=== PATIENT | female | born 1945 | race African-American/Black ===

== ENCOUNTER → 2017-07-27 | Outpatient (CLI) | payer MEDICARE | END | disposition home or self-care (01) | LOC: MAMMO 09:01 | DX: Z12.31 Encounter for screening mammogram for malignant neoplasm of breast (principal) | CPT/HCPCS: 77067 ==

== ENCOUNTER → 2017-08-13 | Outpatient (CLI) | payer MEDICARE | END | disposition home or self-care (01) | LOC: RAD 10:12 | DX: M47.892 Other spondylosis, cervical region (principal) | CPT/HCPCS: 72040 ==

== ENCOUNTER → 2017-11-28 | Outpatient (CLI) | payer MEDICARE | END | disposition home or self-care (01) | LOC: KCIC CT 09:49 | DX: R51 Headache (principal); I10 Essential (primary) hypertension | CPT/HCPCS: 70450 ==

== ENCOUNTER → 2018-03-31 | Outpatient (CLI) | payer MEDICARE ==
[2014-06-13 08:13] VITALS: BP 170/99
[~2018-03-31] MED LIST: AMLO10TA6 PO; ASPI-482 PO; ASPI-630 PO; FERR325T14 PO; FOLI1TAB16 PO; LISI-130 PO; LISI10TA2 PO; METH1POW21 MC; METH2.5T PO; OXYC-323 PO; VITA1TAB19 PO; WARF3TAB50 PO
[2018-03-31 09:33] LABS: BASO # 0.1 x10^3/uL (0.0-0.2); BASO % 1 % (0-3); EOS # 0.2 x10^3/uL (0.0-0.7); EOS % 4 % (0-3); HEMATOCRIT 36.6 % (36.0-47.0); LYMPH # 0.8 x10^3/uL (1.0-4.8); LYMPH % 15 % (24-48); MEAN CORPUSCULAR HEMOGLOBIN 27 pg (25-35); MEAN CORPUSCULAR HGB CONC 33 g/dL (31-37); MEAN CORPUSCULAR VOLUME 83 fL (79-100); MONO # 0.3 x10^3/uL (0.0-1.1); MONO % 6 % (0-9); NEUT # 3.8 x10^3uL (1.8-7.7); NEUT % 75 % (31-73); PLATELET COUNT 281 x10^3/uL (140-400); RED BLOOD COUNT 4.42 x10^6/uL (3.50-5.40); RED CELL DISTRIBUTION WIDTH 17.4 % (11.5-14.5); WHITE BLOOD COUNT 5.1 x10^3/uL (4.0-11.0)
[2018-03-31 09:42] LABS: ALBUMIN 3.6 g/dL (3.4-5.0); CALCIUM 9.6 mg/dL (8.5-10.1); CREATININE 0.8 mg/dL (0.6-1.0); GFR 85.8; POTASSIUM 3.3 mmol/L (3.5-5.1)
[2018-03-31 09:43] LABS: PROTHROMBIN TIME PATIENT 13.3 SEC (11.7-14.0)
[2018-03-31 11:36] LABS: BILIRUBIN,URINE NEGATIVE (NEG); CLARITY,URINE CLEAR; COLOR,URINE YELLOW; NITRITE,URINE NEGATIVE (NEG); PROTEIN,URINE 100 mg/dL (NEG-TRACE); UROBILINOGEN,URINE 0.2 mg/dL (0.2 mg/dL)
[2018-03-31 11:46] LABS: SQUAMOUS EPITHELIAL CELL,UR FEW /LPF
[2018-03-31 11:47] LABS: BACTERIA,URINE FEW /HPF (0-FEW)
--- NOTE | 2018-03-31 15:52 | RAD ---
EXAM: Chest, 2 views. HISTORY: Preoperative evaluation. Hypertension. COMPARISON: None. FINDINGS: 2 views of the chest are obtained. There is no infiltrate, pleural effusion or pneumothorax. The heart is normal in size. IMPRESSION: No acute pulmonary finding. Electronically signed by: Sri Leigh MD (03/31/2018 3:49 PM) [facility]
== END | disposition home or self-care (01) ==
LOC: SURGPAT 13:00
PROVIDERS: ATTEND Orthopaedic Surgery
DX: Z01.818 Encounter for other preprocedural examination (principal); I10 Essential (primary) hypertension
CPT/HCPCS: 36415; 71046; 80048; 81001; 82040; 85025; 85610; 85651; 85730; 87086; 87641

== ENCOUNTER 2018-04-15 05:47 | Inpatient (IN) | payer MEDICARE ==
[~2018-04-15] VITALS: Ht 165.1 cm; Wt 80.7 kg
[2018-04-15] VITALS (8 sets, daily range): BP systolic 121–140; BP diastolic 71–79
[~2018-04-15 05:47] MED LIST changes: -FERR325T14 PO; -OXYC-323 PO; -WARF3TAB50 PO
[2018-04-15] MEDS ORDERED: TRANEXAMIC ACID 1,000 MG/10 ML VIAL. ONE (05:50)
[2018-04-15] MEDS ORDERED: MORPHINE SULFATE 5 MG, KETOROLAC 30MG VIAL 30 MG, ROPIVacaine 0.5% PF 60 ML, EPINEPHrin... INT ART ONE ×5 (06:00)
[2018-04-15] MEDS ORDERED: HYDROcodone/APAP 7.5/325MG 1 TAB TABLET PO PRN ×2 (06:00→08:00)
[2018-04-15] MEDS ORDERED: CELECOXIB 100 MG CAPSULE. PO PRN (06:00)
[2018-04-15] MEDS ORDERED: TRANEXAMIC ACID 1,000 MG in IV NS 50ML -- 1ST BAG INJ ONE (06:00)
[2018-04-15] MEDS: MELOXICAM 7.5 MG TABLET PO SCH (06:40)
[2018-04-15] MEDS ORDERED: HYDROmorphone 2 MG/ML VIAL IV PRN (07:00)
[2018-04-15] MEDS ORDERED: fentaNYL PF VIAL 100 MCG/2 ML VIAL IV PRN ×3 (07:00→08:00)
[2018-04-15] MEDS ORDERED: PROCHLORPERAZINE 10 MG/2 ML VIAL. IV PRN ×2 (07:00→08:00)
[2018-04-15] MEDS ORDERED: ONDANSETRON PF 4 MG/2 ML VIAL. IV PRN (07:00)
[2018-04-15] MEDS ORDERED: LIDOCAINE 1% PF 2 ML VIAL. ID PRN (07:00)
[2018-04-15] MEDS ORDERED: IV RINGERS,LACTATED 1000ML 1,000 ML IV SCH (07:00)
[2018-04-15 07:23] LABS: PROTHROMBIN TIME PATIENT 13.2 SEC (11.7-14.0)
[2018-04-15] MEDS ORDERED: ROCURONIUM 50 MG/5 ML VIAL. ONE (07:26)
[2018-04-15] MEDS ORDERED: LIDOCAINE 2% PF Vial for OR 5 ML VIAL. ONE (07:26)
[2018-04-15] MEDS ORDERED: ONDANSETRON PF 4 MG/2 ML VIAL. ONE (07:26)
[2018-04-15] MEDS ORDERED: DEXAMETHASONE SOD PHOS 20 MG/5 ML VIAL. ONE (07:26)
[2018-04-15] MEDS ORDERED: PROPOFOL 20 ML IV ONE (07:26)
[2018-04-15] MEDS ORDERED: fentaNYL PF VIAL 100 MCG/2 ML VIAL ONE ×3 (07:26→10:43)
[2018-04-15] MEDS ORDERED: HYDROcodone/APAP 10/325 1 TAB TABLET PO PRN (08:00)
[2018-04-15] MEDS ORDERED: CALCIUM CARBONATE 500 MG TAB.CHEW PO PRN (08:00)
[2018-04-15] MEDS ORDERED: TRANEXAMIC ACID 1,000 MG in IV NS 50ML -- 2ND BAG INJ ONE (08:00)
[2018-04-15] MEDS ORDERED: traMADol 50 MG TABLET PO PRN ×2 (08:00)
[2018-04-15] MEDS ORDERED: ZOLPIDEM 5 MG TABLET. PO PRN (08:00)
[2018-04-15] MEDS ORDERED: 0.9 % SODIUM CHLORIDE 10 ML DISP.SYRIN. IV PRN (08:00)
[2018-04-15] MEDS ORDERED: MORPHINE SULFATE 2 MG/ML VIAL. IV PRN (08:00)
[2018-04-15] MEDS ORDERED: MORPHINE SULFATE 4 MG/ML VIAL. IV PRN (08:00)
[2018-04-15] MEDS ORDERED: ACETAMINOPHEN 325 MG TABLET. PO PRN (08:00)
[2018-04-15] MEDS ORDERED: DEXTROSE 50% 25 GM / 50ML DISP.SYRIN. IV PRN (08:00)
[2018-04-15] MEDS ORDERED: PHENYLEPHRINE in 0.9% NACL PF 1 MG/10 ML SYRINGE. IV ONE (08:19)
--- NOTE | 2018-04-15 08:39 | HP ---
ADMIT DATE: 04/15/2018 PRINCIPAL DIAGNOSIS: Degenerative joint disease, right knee, with some bilateral knee pain. HISTORY OF PRESENT ILLNESS: The patient is an otherwise active 9-year-old female, increasing limited by bilateral knee pain, right worse than left for the past several years. She has gotten cortisone injections that originally gave her some reasonable relief and now has less effect. It affects both her work where she is on her feet all day at [employer] and at home where her activities of daily living are affected due to her pain. PAST MEDICAL HISTORY: Significant for hypertension, arthritis, and diverticulitis. PAST SURGICAL HISTORY: Hysterectomy. SOCIAL HISTORY: Denies smoking, alcohol or drug use. MEDICATIONS: List is reviewed. REVIEW OF SYSTEMS: Denies any fever, chills, chest pain, shortness of breath, focal weakness, numbness, tingling, radiating pain in the extremities. PHYSICAL EXAMINATION: VITAL SIGNS: Per admission sheet. HEENT: Atraumatic, normocephalic. HEART: Regular rate and rhythm. LUNGS: Clear to auscultation bilaterally. ABDOMEN: Benign. EXTREMITIES: Examination of the right knee reveals some slight varus, minimal flexion contracture, good ligamentous stability, significant patellofemoral crepitus and joint line tenderness, less severe findings on the left. Normal alignment and stability of bilateral hips and ankles. IMAGING DATA: X-rays show severe tricompartmental degenerative changes in the right knee. IMPRESSION: Degenerative joint disease, right knee. TREATMENT PLAN: We had previously talked about definitive treatment of total knee arthroplasty with her. She said all her questions were answered in joint class. She has no further questions today. A few questions of her family at her request were addressed and she gave informed consent, noting risks of infection, nerve or blood vessel damage, medical or other anesthetic complications among others. She will proceed to the joint center for ongoing admission and treatment following the total knee arthroplasty. LIBERTAD YOUNG MD DR: KATY/lucy JOB#: [id number] / [id number]
[2018-04-15] MEDS ORDERED: ePHEDrine PF IN SALINE 50 MG/5 ML DISP.SYRIN IV ONE (08:53)
[2018-04-15] MEDS ORDERED: hydrALAZINE 20 MG/ML VIAL. ONE (09:09)
[2018-04-15] MEDS ORDERED: SEVOFLURANE > 120 MINUTES. IH ONE (09:13)
[2018-04-15] MEDS ORDERED: NEOSTIGMINE METHYLSULFATE 5 MG/5 ML SYRINGE. ONE (09:52)
[2018-04-15] MEDS ORDERED: GLYCOPYRROLATE 1 MG/5 ML VIAL. ONE (09:52)
--- NOTE | 2018-04-15 10:26 | PDOC4 ---
Operative Note Operative Note Date of surgery: 04/15/2018 Preoperative diagnosis: Degenerative joint disease right knee Postoperative diagnosis: Same Operative procedure: Right total knee arthroplasty Surgeon: Harjinder Assist: Natalio Anesthesia: Gen. Estimated blood loss: 10 mL Tourniquet time: Approximately 1 hour 20 minutes Complications: None Surgical drains: Hemovac and intra-articular catheter Operative indications: Please see my preoperative history and physical and clinic notes. We had covered risks benefits postoperative course of total knee arthroplasty including the possibility of infection continued pain instability premature wear or loosening medical or other anesthetic complications among others all her questions were answered she wishes to proceed with surgical evaluation and treatment in joint center admission to follow Operative text: Patient was identified procedure verified patient placed in the supine position on the operating table. After adequate amounts of general anesthesia were administered the right lower extremity was prepped and draped in standard sterile fashion with a thigh tourniquet. After timeout was performed patient procedure identified and verified right lower extremity was exsanguinated by Esmarch bandage tourniquet inflated to 350 no was mercury midline incision was made with a medial parapatellar approach fat pad was excised and patella everted. Femur was drilled for an intramedullary cutting guide in standard position she had minimal flexion contracture she was sized for a size 4 femur AP lateral chamfer cuts were then made ACL was excised PCL was preserved. Menisci were then excised tibial cut was made using the extra medullary cutting jig and a moderate medial release had to be performed to balance the otherwise tight medial compartment where she had the majority of her wear. Tibia was then drilled and broached trial femur was then placed patella was medialized with a size 29 resurfacing patella lateral bone was removed to minimize any chance of impingement. Trial components were removed synovium was thoroughly irrigated and bleeding points controlled by electrocautery with particular attention to the posterior capsule area the following [employer] components were cemented in place with polymethylmethacrylate cement: A size 3 journey 2 tibial component a size 3 cruciate retaining cobalt-chromium femoral component and a size 29 mm resurfacing round patella. An 11 mm spacer was placed in the held out in extension and cement allowed to dry after removing excess. Given that she had excellent tracking and ligament balance an 11 mm polyethylene component was snapped into place additional thorough irrigation carried out normal saline solution Hemovac drain and pain catheter were placed pain catheter mixture was injected throughout the joint capsule closure with interrupted 2-0 Ethibond suture in the retinaculum reinforced by a #1 PDS strata fix suture subcutaneous closure with buried Vicryl suture subcuticular 3-0 Monocryl was followed by a bita drain. Patient was returned recovery room in stable condition having tolerated procedure well. Toes were noted be warm pink following deflation of tourniquet. Felipe Lance nurse practitioner was present for the procedure and assisted in skin closure LIBERTAD YOUNG MD Apr 15, 2018 10:26
[2018-04-15] MEDS: fentaNYL PF VIAL 100 MCG/2 ML VIAL IV PRN ×2 (11:02→11:09)
--- NOTE | 2018-04-15 11:05 | RAD ---
KNEE RIGHT 2V Clinical Indication: POST OP TOTAL KNEE REPLACEMENT Comparison: None. Findings: AP and crosstable lateral views. There has been total knee arthroplasty. The alignment appears anatomic. There has been resurfacing of the patella. No periprosthesis fracture is identified. There is joint fluid and air. Surgical drain is in place. There is scattered subcutaneous air. IMPRESSION: Post total knee arthroplasty, no acute complication radiographically. Electronically signed by: Jose Gresham MD (04/15/2018 11:02 AM) [id number]
[2018-04-15] MEDS ORDERED: MORPHINE SULFATE 2 MG/ML VIAL. ONE (11:16)
[2018-04-15] MEDS: MORPHINE SULFATE 2 MG/ML VIAL. IV PRN ×2 (11:19→11:33)
[2018-04-15] MEDS ORDERED: PROCHLORPERAZINE 10 MG/2 ML VIAL. ONE (11:23)
[2018-04-15] MEDS: oxyCODONE/APAP 5/325 1 TAB TABLET PO PRN ×2 (15:42→20:21)
[2018-04-15] MEDS ORDERED: WARFARIN 3 MG TABLET. PO ONE (16:00)
[2018-04-15] MEDS ORDERED: WARFARIN 7.5 MG TABLET. PO ONE (16:00)
[2018-04-15] MEDS: FERROUS SULFATE 325 MG TABLET. PO SCH (17:00)
[2018-04-15] MEDS: KETOROLAC 30MG VIAL 30 MG, BUPIVACAINE MPF 0.25% 20 ML, EPINEPHrine 0.5 MG in TOTAL VOL... INT ART SCH (17:47)
[2018-04-15] MEDS: IV DEXTROSE 5 %-0.45 % NACL 1,000 ML IV SCH ×2 (18:34→22:30)
[2018-04-15] MEDS: CELECOXIB 100 MG CAPSULE. PO SCH (20:21)
[2018-04-16 03:08] VITALS: BP 131/70
[2018-04-16 05:38] LABS: HEMATOCRIT 26.3 % (36.0-47.0); HEMOGLOBIN 8.6 g/dL (12.0-15.5)
[2018-04-16 05:41] VITALS: BP 145/82
[2018-04-16 05:52] LABS: PROTHROMBIN TIME PATIENT 15.8 SEC (11.7-14.0)
[2018-04-16] MEDS: KETOROLAC 30MG VIAL 30 MG, BUPIVACAINE MPF 0.25% 20 ML, EPINEPHrine 0.5 MG in TOTAL VOL... INT ART SCH (05:52)
[2018-04-16] MEDS: oxyCODONE/APAP 5/325 1 TAB TABLET PO PRN ×2 (05:59→12:45)
[2018-04-16] MEDS ORDERED: MAGNESIUM HYDROXIDE 2,400 MG/30 ML ORAL.SUSP. PO PRN (06:00)
--- NOTE | 2018-04-16 07:16 | PDOC ---
ORTHO PROGRESS NOTES Subjective Patient states feeling ok with minimal pain. Post-op Day: 1 Procedure R TKA Vitals Vital Signs Date Time Temp Pulse Resp B/P (MAP) Pulse Ox O2 Delivery O2 Flow Rate FiO2 04/16/18 06:59 Room Air 04/16/18 05:59 18 97 04/16/18 05:41 98.7 88 145/82 (103) 98.7 04/15/18 11:33 2.0 Labs Laboratory Tests Test 04/15/18 06:00 04/16/18 04:40 Prothrombin Time 13.2 SEC (11.7-14.0) 15.8 SEC (11.7-14.0) Prothromb Time International Ratio 1.1 (0.8-1.1) 1.3 (0.8-1.1) Activated Partial Thromboplast Time 30 SEC (24-38) Hemoglobin 8.6 g/dL (12.0-15.5) Hematocrit 26.3 % (36.0-47.0) Mean Corpuscular Hemoglobin Concent 33 g/dL (31-37) Laboratory Tests Test 04/16/18 04:40 Hemoglobin 8.6 g/dL (12.0-15.5) Hematocrit 26.3 % (36.0-47.0) Mean Corpuscular Hemoglobin Concent 33 g/dL (31-37) Prothrombin Time 15.8 SEC (11.7-14.0) Prothromb Time International Ratio 1.3 (0.8-1.1) Assessment and Plan N/V intact distally moving toes and feet dressing dry and intact PT per protocol TRIP BERNARD APRN Apr 16, 2018 07:15
[2018-04-16] MEDS: IV DEXTROSE 5 %-0.45 % NACL 1,000 ML IV SCH ×3 (08:30→19:09)
[2018-04-16] MEDS: CELECOXIB 100 MG CAPSULE. PO SCH ×2 (09:00→20:40)
[2018-04-16] MEDS: FOLIC ACID 1 MG TABLET. PO SCH (09:13)
[2018-04-16] MEDS: VITAMIN B COMPLEX TABLET. PO SCH (09:13)
[2018-04-16] MEDS: MELOXICAM 7.5 MG TABLET PO SCH (09:14)
[2018-04-16] MEDS: FERROUS SULFATE 325 MG TABLET. PO SCH ×2 (09:14→17:00)
[2018-04-16] MEDS: SENNOSIDES/DOCUSATE 8.6/50MG TABLET. PO SCH (09:14)
[2018-04-16] MEDS: oxyCODONE/APAP 7.5/325 1 TAB TABLET PO PRN ×3 (09:14→19:11)
[2018-04-16] MEDS: MULTIVITAMIN with MINERAL TABLET. PO SCH (09:14)
[2018-04-16 09:15] VITALS: BP 138/79
[2018-04-16] MEDS: amLODIPine BESYLATE 10 MG TABLET PO SCH (09:15)
[2018-04-16 11:53] VITALS: BP 139/85
[2018-04-16] MEDS: LISINOPRIL 20 MG TABLET PO SCH (12:47)
--- NOTE | 2018-04-16 15:04 | PDOC ---
PROGRESS NOTES Subjective Subjective Problems overnight: Doing well, pain controlled minimal complaints Objective Vital Signs Vital Signs Date Time Temp Pulse Resp B/P (MAP) Pulse Ox O2 Delivery O2 Flow Rate FiO2 04/16/18 12:47 91 139/85 04/16/18 12:45 20 04/16/18 11:53 98.3 98 Room Air 98.3 04/15/18 11:33 2.0 Physical Exam Dressing Hemovac drain pain catheter all intact excellent early motion distal neurovascular status intact Labs Laboratory Tests Test 04/15/18 06:00 04/16/18 04:40 Prothrombin Time 13.2 SEC (11.7-14.0) 15.8 SEC (11.7-14.0) Prothromb Time International Ratio 1.1 (0.8-1.1) 1.3 (0.8-1.1) Activated Partial Thromboplast Time 30 SEC (24-38) Hemoglobin 8.6 g/dL (12.0-15.5) Hematocrit 26.3 % (36.0-47.0) Mean Corpuscular Hemoglobin Concent 33 g/dL (31-37) Laboratory Tests Test 04/16/18 04:40 Hemoglobin 8.6 g/dL (12.0-15.5) Hematocrit 26.3 % (36.0-47.0) Mean Corpuscular Hemoglobin Concent 33 g/dL (31-37) Prothrombin Time 15.8 SEC (11.7-14.0) Prothromb Time International Ratio 1.3 (0.8-1.1) Imaging Postop x-rays show right total knee arthroplasty with excellent alignment Assessment Assessment POD# [1], S/P [right total knee arthroplasty] Plan Plan of Care Weightbearing as tolerated standard total knee protocol Coumadin anticoagulation LIBERTAD YOUNG MD Apr 16, 2018 15:04
[2018-04-16] MEDS ORDERED: BISACODYL 10 MG SUPP.RECT. PR PRN (16:00)
[2018-04-16 18:18] VITALS: BP 159/83
[2018-04-17] MEDS: oxyCODONE/APAP 7.5/325 1 TAB TABLET PO PRN ×6 (00:14→21:16)
[2018-04-17 06:25] VITALS: BP 141/78
[2018-04-17 07:08] LABS: HEMATOCRIT 27.1 % (36.0-47.0)
[2018-04-17] MEDS: oxyCODONE/APAP 5/325 1 TAB TABLET PO PRN (07:18)
[2018-04-17 07:32] LABS: PROTHROMBIN TIME PATIENT 18.2 SEC (11.7-14.0)
[2018-04-17] MEDS ORDERED: POLYETHYLENE GLYCOL 3350 17 GM PACKET. PO PRN (08:30)
[2018-04-17] MEDS ORDERED: BISACODYL 5 MG TABLET.DR. PO PRN (08:30)
[2018-04-17] MEDS: FOLIC ACID 1 MG TABLET. PO SCH (08:34)
[2018-04-17] MEDS: MELOXICAM 7.5 MG TABLET PO SCH (08:34)
[2018-04-17] MEDS: MULTIVITAMIN with MINERAL TABLET. PO SCH (08:34)
[2018-04-17] MEDS: FERROUS SULFATE 325 MG TABLET. PO SCH ×2 (08:35→16:30)
[2018-04-17] MEDS: amLODIPine BESYLATE 10 MG TABLET PO SCH (08:35)
[2018-04-17] MEDS: VITAMIN B COMPLEX TABLET. PO SCH (08:35)
[2018-04-17] MEDS: SENNOSIDES/DOCUSATE 8.6/50MG TABLET. PO SCH (08:35)
[2018-04-17] MEDS: LISINOPRIL 20 MG TABLET PO SCH (08:36)
[2018-04-17] MEDS: CELECOXIB 100 MG CAPSULE. PO SCH ×2 (08:40→21:16)
[2018-04-17] MEDS: IV DEXTROSE 5 %-0.45 % NACL 1,000 ML IV SCH ×2 (14:30→21:18)
[2018-04-17] MEDS ORDERED: WARFARIN 3 MG TABLET. PO ONE (16:30)
[2018-04-17 18:09] VITALS: BP 158/87
[2018-04-18 05:53] VITALS: BP 136/77
[2018-04-18 06:57] LABS: HEMATOCRIT 26.6 % (36.0-47.0)
[2018-04-18 07:15] LABS: PROTHROMBIN TIME PATIENT 18.3 SEC (11.7-14.0)
[2018-04-18] MEDS: CELECOXIB 100 MG CAPSULE. PO SCH (07:42)
[2018-04-18] MEDS: FERROUS SULFATE 325 MG TABLET. PO SCH (07:58)
[2018-04-18] MEDS: amLODIPine BESYLATE 10 MG TABLET PO SCH (07:58)
[2018-04-18] MEDS: SENNOSIDES/DOCUSATE 8.6/50MG TABLET. PO SCH (07:58)
[2018-04-18] MEDS: FOLIC ACID 1 MG TABLET. PO SCH (07:59)
[2018-04-18] MEDS: LISINOPRIL 20 MG TABLET PO SCH (07:59)
[2018-04-18] MEDS: VITAMIN B COMPLEX TABLET. PO SCH (07:59)
[2018-04-18] MEDS: MELOXICAM 7.5 MG TABLET PO SCH (07:59)
[2018-04-18] MEDS: MULTIVITAMIN with MINERAL TABLET. PO SCH (07:59)
[2018-04-18] MEDS: oxyCODONE/APAP 7.5/325 1 TAB TABLET PO PRN ×3 (08:00→14:58)
--- NOTE | 2018-04-18 09:09 | PATHOLOGY ---
[facility] Accession Number: [id number] . 01 Material submitted: . RIGHT KNEE BONE AND TISSUE . 01 Clinician provided ICD-10: M17.11 . 01 Clinical history: . Right knee osteoarthritis . 02 Diagnosis: "Right knee bone and tissue", removal: - Degenerative osteoarthritis. . (SKM:vjm;04/17/2018) [facility]/04/17/2018 . 02 Electronically signed: . Dionisio Godwin MD, Pathologist NPI- [id number] . 01 Gross description: . The specimen is received in formalin, labeled "Kenneth, Shirlene, right knee bone and tissue", are multiple segments of calvert-brown bone and beck-white soft tissue consisting of recognizable portion of tibia plateau, patella and meniscus measuring 9.0 x 8.7 x 2.0 cm in aggregate. Peripheral osteophytes and eburnation is identified. Brush Painter tissue is submitted in A1 after decalcification. ([facility]; 04/15/2018) [facility] . 02 Pathologist provided ICD-10: M17.11 . 02 CPT . 095260, [id number] Specimen Comment: A courtesy copy of this report has been sent to Specimen Comment: [phone], . Specimen Comment: Report sent to / DR CHRISTENSEN Specimen Comment: A duplicate report has been generated due to demographic updates. Performed at: 01 [facility] [address] [address], [place] [id number] MD Minh Jordan MD Phone: [phone] Performed at: 02 [facility] [address] [place], [place] [id number] MD Vadim Anglin MD Phone: [phone]
[2018-04-18] MEDS: IV DEXTROSE 5 %-0.45 % NACL 1,000 ML IV SCH (10:09)
[2018-04-18] MEDS ORDERED: WARFARIN 3 MG TABLET. PO ONE (11:00)
[2018-04-18 12:51] VITALS: BP 150/82
--- NOTE | 2018-04-18 13:21 | DISCH ---
DISCHARGE INSTRUCTIONS Condition on Discharge Condition on Discharge: Stable Activity After Discharge Activity Instructions for Disc: Walk in house Other activity instructions: use walker until released by therapist Bathing Instructions: Shower-keep dressing dry, No Tub Bath until see Lifting Instructions after Dis: No heavy lifting, No pulling or pushing, Do not lift >10 pounds Exercise Instruction after Dis: Exercise per therapy Driving Instructions after Dis: Do not drive Weight Bearing Status after Di: No restrictions, Full weight bearing, As tolerated Diet after Discharge Diet after Discharge: Regular Diet Texture: Regular Liquid Texture: Thin Liquid Swallowing Supervision: None needed Wound Incision Care Wound/Incision Care: Ice to area for comfort, Keep wound/cast CDI, Do not change dressing, May get incision wet Other wound/incision instructi: remove battery pack on apr.22 cut tubing 4" from bubble and tape d Wound Care Equipment: Dressings Checks after Discharge DC Comment: increase fruits, vegetables and fiber; attempt BM every 2-3 days Community/Resources/Services Services at Discharge: Home Health Care Services, PT EVALUATE & TREAT, OT Evaluate & Treat, RN Services Contacting the after DC Call your doctor for: Concerns you may have Follow-Up Follow Up With: call [phone] for a 2 week post op appt with Dr. Grande Treatment/Equipment after DC Comment: PT/INR to be drawn SaturdayApr.21; ;; Warfarin Follow-Up Warfarin Follow UP: [facility] is managing coumadin ??? call LIBERTAD GRANDE MD Apr 18, 2018 13:21
[2018-04-18] MEDS ORDERED: WARF3TAB50 PO (13:35)
[2018-04-18] MEDS ORDERED: OXYC-323 PO (13:38)
[2018-04-18] MEDS ORDERED: FERR325T14 PO (13:44)
--- NOTE | 2018-04-19 09:59 | DS ---
DATE OF DISCHARGE: 04/18/2018 ORTHOPEDIC DISCHARGE SUMMARY PRINCIPAL DIAGNOSIS: Degenerative joint disease, right knee. PROCEDURE: Right total knee arthroplasty. DISPOSITION: Home with her daughter and home health. Follow up with Dr. Grande in 2 weeks. Activity, weightbearing as tolerated, standard total knee protocol. Maintain DAR drain. Call if any redness, drainage, uncontrolled pain or other problems. DISCHARGE MEDICATIONS: Percocet 5/325 one p.o. q. 4 hours p.r.n. pain, Coumadin as directed by anticoagulation clinic and resume preoperative medications noted as in discharge summary. BRIEF DESCRIPTION OF HOSPITAL COURSE: The patient underwent an uncomplicated total knee arthroplasty. Postoperatively, she was noted to be medically stable. Pain was well controlled. She progressed well with physical therapy and was discharged home with her daughter, with plan of home health, in stable condition. LIBERTAD GRANDE MD DR: KATY/lucy JOB#: [id number] / [id number]
[2018-04-21] MEDS ORDERED: METHOTREXATE SODIUM 2.5 MG TABLET PO SCH (09:00)
== END 2018-04-18 16:30 | disposition home health service (06) | DRG 470 ==
LOC: OPSVCIP 05:47 → 4 SOUTHEST 12:14
PROVIDERS: ADMIT Orthopaedic Surgery; ATTEND Orthopaedic Surgery
PROC: 0SRC0J9 Replacement of Right Knee Joint with Synthetic Substitute, Cemented, Open Approach (ICD-10-PCS; principal; 2018-04-15 07:30)
DX: M17.11 Unilateral primary osteoarthritis, right knee (principal); I10 Essential (primary) hypertension; Z90.710 Acquired absence of both cervix and uterus
CPT/HCPCS: 36415; 73560; 85014; 85018; 85610; 85730; 86850; 86870; 86900; 86901; 86902; 86922; 88305; 88311; A7015; C1713; J0171; J0360; J0690; J0780; J1100; J1885; J2001; J2270; J2370; J2405; J2704; J2710; J2795; J3010; J3490; J7030; J7120; 97116; 97150; 97530; 97535; C1769

== ENCOUNTER → 2018-06-25 | Outpatient (CLI) | payer MEDICARE ==
[~2018-06-25] MED LIST changes: +FERR325T14 PO; +OXYC1TAB15 PO; +WARF3TAB50 PO
--- NOTE | 2018-06-25 14:04 | RAD ---
EXAM: Lumbar spine, 3 views. HISTORY: Pain. COMPARISON: None. FINDINGS: 3 views of the lumbar spine are obtained. There is grade 1 anterolisthesis of L4 and L5, measuring 10 mm. There is grade 1 anterolisthesis of L5 on S1, measuring 5 mm. There is grade 1 anterolisthesis of L3 on L4, measuring 4 mm. There is degenerative endplate remodeling with disc space narrowing predominantly at L4-L5. There is facet arthropathy predominating at L4-5 and L5-S1. There is mild osteitis pubis. IMPRESSION: 1. Multilevel degenerative change within the lumbar spine, primarily at the lower lumbar levels. 2. Grade 1 anterolisthesis of L4 and L5. Electronically signed by: Sri Leigh MD (06/25/2018 2:00 PM) [facility]
== END | disposition home or self-care (01) ==
LOC: RAD 13:27
PROVIDERS: ATTEND Internal Medicine
DX: M47.26 Other spondylosis with radiculopathy, lumbar region (principal); M85.38 Osteitis condensans, other site; M43.16 Spondylolisthesis, lumbar region; M12.88 Other specific arthropathies, not elsewhere classified, other specified site
CPT/HCPCS: 72100

== ENCOUNTER → 2018-09-17 | Outpatient (CLI) | payer MEDICARE ==
[~2018-09-17] MED LIST changes: -AMLO10TA6 PO; +AMLO10TA8 PO
--- NOTE | 2018-09-17 14:50 | RAD ---
DATE: 09/17/2018 EXAM: MAMMO BRUCE SCREENING BILATERAL HISTORY: Routine screening COMPARISON: 07/27/2017 This study was interpreted with the benefit of Computerized Aided Detection (CAD). Breast Density: HETERO The breast parenchyma is heterogenously dense, which could reduce sensitivity of mammography. Breast parenchyma level C. FINDINGS: 2-D and 3-D tomosynthesis imaging was performed in CC and MLO projections. No new or enlarging breast densities are seen. Benign type calcifications are present. No suspicious microcalcifications have developed. IMPRESSION: Stable mammograms without evidence of malignancy. BI-RADS CATEGORY: 2 BENIGN FINDING(S) RECOMMENDED FOLLOW-UP: 12M 12 MONTH FOLLOW-UP PQRS compliance statement: Patient information was entered into a reminder system with a target due date for the next mammogram. Mammography is a sensitive method for finding small breast cancers, but it does not detect them all and is not a substitute for careful clinical examination. A negative mammogram does not negate a clinically suspicious finding and should not result in delay in biopsying a clinically suspicious abnormality. "Our facility is accredited by the [employer] Mammography Program."
== END | disposition home or self-care (01) ==
LOC: MAMMO 13:09
PROVIDERS: ATTEND Internal Medicine
DX: Z12.31 Encounter for screening mammogram for malignant neoplasm of breast (principal); R92.8 Other abnormal and inconclusive findings on diagnostic imaging of breast
CPT/HCPCS: 77063; 77067

== ENCOUNTER → 2019-06-02 | Outpatient (CLI) | payer MEDICARE ==
--- NOTE | 2019-06-02 10:29 | RAD ---
EXAM: CAROTID DOPPLER SONOGRAM. HISTORY: Left carotid bruit, hypertension. TECHNIQUE: Philip scale and color Doppler sonographic evaluation of the neck with spectral waveform analysis was performed and static images are submitted for review. FINDINGS: RIGHT: The peak systolic velocity within the common carotid artery is 52 cm/sec. The peak systolic velocity within the internal carotid artery is 62 cm/sec and the end diastolic velocity within the internal carotid artery is 25 cm/sec. The ICA/CCA ratio is 1.2. Grayscale images demonstrate no grayscale stenosis. LEFT: The peak systolic velocity within the common carotid artery is 65 cm/sec. The peak systolic velocity within the internal carotid artery is 59 cm/sec and the end diastolic velocity within the internal carotid artery is 20 cm/sec. The ICA/CCA ratio is 0.9. Grayscale images demonstrate no grayscale stenosis. There is antegrade flow within both vertebral arteries. IMPRESSION: 1. No evidence of hemodynamically significant stenosis. PQRS Compliance Statement - Stenosis calculations for CT, MR and conventional angiography are based upon measurement of the distal ICA diameter in accordance with the NASCET methodology. Stenosis calculations for carotid ultrasound studies are derived from validated velocity criteria which are known to correlate with the NASCET methodology. Electronically signed by: Joslyn Schneider MD (06/02/2019 10:26 AM) [facility]
--- NOTE | 2019-06-02 11:28 | CARD ---
MR#: [id number] Date of Study: 06/02/2019 Ordering Physician: HUGH GIBBONS, Referring Physician: HUGH GIBBONS, Tech: APPROVED REPORT EXAM: Two-dimensional and M-mode echocardiogram with Doppler and color Doppler. Other Information Quality : AverageHR: 65bpm INDICATION Syncope RISK FACTORS Hypertension 2D DIMENSIONS RVDd3.0 (2.9-3.5cm)Left Atrium(2D)4.3 (1.6-4.0cm) IVSd1.1 (0.7-1.1cm)Aortic Root(2D)3.2 (2.0-3.7cm) LVDd5.2 (3.9-5.9cm)LVOT Diameter2.3 (1.8-2.4cm) PWd1.3 (0.7-1.1cm)LVDs3.7 (2.5-4.0cm) FS (%) 30.2 %SV75.5 ml LVEF(%)57.1 (>50%) Aortic Valve AoV Peak Chai.160.9cm/sAoV VTI30.6cm AO Peak GR.10.4mmHgLVOT Peak Chai.85.8cm/s LVOT VTI 20.86cmAO Mean GR.5mmHg BALDEV (VMAX)1.78mv6NXB (VTI)2.84cm2 AI P 1/2 Yjbj963ol Mitral Valve MV E Qtehsugj66.1cm/sMV DECEL ZHEQ695cn MV A Geoppcdx541.6cm/sMV E Mean Gr.2mmHg MV CVX89yiO/A Ratio0.6 MVA (PHT)2.47cm2 TDI E/Lateral E'12.6E/Medial E'11.2 Pulmonary Valve PV Peak Mcaomvdg290.2cm/sPV Peak Grad.5mmHg Tricuspid Valve TR P. Qprazvkb067yp/sRAP CQNVABLA0duGt TR Peak Gr.40gmMoRZKJ23fgCy Pulmonary Vein S1 Gchcuhcg72.8cm/sD2 Tbahvupj27.2cm/s PVa aoebqsru303uifi LEFT VENTRICLE The left ventricle is normal size. There is mild to moderate concentric left ventricular hypertrophy. The left ventricular systolic function is normal and the ejection fraction is within normal range. T he Ejection Fraction is 55-60%. There is normal LV segmental wall motion. Transmitral Doppler flow pa ttern is Grade I-abnormal relaxation pattern. RIGHT VENTRICLE The right ventricle is normal size. There is normal right ventricular wall thickness. The right ventr icular systolic function is normal. ATRIA The left atrium size is normal. The right atrium is mildly dilated. The interatrial septum is intact with no evidence for an atrial septal defect or patent foramen ovale as noted on 2-D or Doppler imagi ng. AORTIC VALVE The aortic valve is normal in structure and function. Doppler and Color Flow revealed moderate aortic regurgitation. There is no significant aortic valvular stenosis. MITRAL VALVE The mitral valve is normal in structure and function. There is no evidence of mitral valve prolapse. There is no mitral valve stenosis. Doppler and Color-flow revealed trace mitral regurgitation. TRICUSPID VALVE The tricuspid valve is normal in structure and function. Doppler and Color Flow revealed trace tricus pid regurgitation with an estimated PAP of 30 mmHg. There is no tricuspid valve stenosis. PULMONIC VALVE The pulmonic valve is not well visualized. Doppler and Color Flow revealed trace pulmonic valvular re gurgitation. There is no pulmonic valvular stenosis. GREAT VESSELS The aortic root is normal in size. The IVC is normal in size and collapses >50% with inspiration. PERICARDIAL EFFUSION There is no evidence of significant pericardial effusion. Critical Notification Critical Value: No <Conclusion> The left ventricular systolic function is normal and the ejection fraction is within normal range. Th e Ejection Fraction is 55-60%. There is normal LV segmental wall motion. Doppler and Color Flow revealed moderate aortic regurgitation. Signed by : Bienvenido Parrish, Electronically Approved : 06/02/2019 11:28:28
== END | disposition home or self-care (01) ==
LOC: US 09:24
PROVIDERS: ATTEND Internal Medicine Cardiovascular Disease
DX: I35.1 Nonrheumatic aortic (valve) insufficiency (principal); I11.9 Hypertensive heart disease without heart failure; R09.89 Other specified symptoms and signs involving the circulatory and respiratory systems; M19.90 Unspecified osteoarthritis, unspecified site; K21.9 Gastro-esophageal reflux disease without esophagitis; Z87.891 Personal history of nicotine dependence; Z90.710 Acquired absence of both cervix and uterus
CPT/HCPCS: 93306; 93880

== ENCOUNTER → 2019-07-15 | Outpatient (CLI) | payer MEDICARE ==
--- NOTE | 2019-07-15 13:13 | RAD ---
EXAM: Lumbar spine, 3 views. HISTORY: Pain. COMPARISON: 06/25/2018 FINDINGS: 3 views of the lumbar spine are obtained. There is grade 1 anterolisthesis of L4 on L5, and to a lesser extent, L3 on L4 and L5 on S1. There is disc space narrowing at L4-L5. There is facet arthropathy at the mid lower lumbar levels. IMPRESSION: 1. Grade 1 anterolisthesis of L4 and L5, and to a lesser extent, L3 on L4 and L5 on S1. This is not appreciably changed. 2. Disc space narrowing at L4-L5 and facet arthropathy at the mid lower lumbar levels. This is also stable in appearance. Electronically signed by: Sri Leigh MD (07/15/2019 1:10 PM) [facility] [place]
== END | disposition home or self-care (01) ==
LOC: RAD 12:33
PROVIDERS: ATTEND Internal Medicine
DX: M43.17 Spondylolisthesis, lumbosacral region (principal); M48.061 Spinal stenosis, lumbar region without neurogenic claudication; M12.88 Other specific arthropathies, not elsewhere classified, other specified site
CPT/HCPCS: 72100

== ENCOUNTER → 2019-10-20 | Outpatient (CLI) | payer MEDICARE ==
--- NOTE | 2019-10-21 17:00 | RAD ---
History: Routine screening. Technique: Bilateral digital mammographic routine views were obtained with 2-D and 3-D technique including CAD - computer aided detection. Comparison: 09/17/2018, 07/27/2017. Findings: Breast Tissue Density B :The breast tissue is composed of mixed fatty and fibroglandular tissue. There are no suspicious masses, microcalcifications or areas of architectural distortion. Impression: Negative mammogram. BI-RADS Category 1: Negative. Normal interval followup. A mammogram does not have 100% sensitivity and therefore a negative imaging study should not delay further work up of a suspicious abnormality. The patient will receive a letter with the results in the mail. Patient information is entered into the reminder system with a target due date for the next screening mammogram. The patient will receive a reminder. "Our facility is accredited by the [employer] Mammography Program." BI-RADS 1 -- negative findings (within normal)
== END | disposition home or self-care (01) ==
LOC: MAMMO 09:39
PROVIDERS: ATTEND Internal Medicine
DX: Z12.31 Encounter for screening mammogram for malignant neoplasm of breast (principal)
CPT/HCPCS: 77063; 77067

== ENCOUNTER → 2019-11-12 | Outpatient (CLI) | payer MEDICARE ==
--- NOTE | 2019-11-12 11:01 | RAD ---
MRI Lumbar Spine without contrast History: DJD, sciatica Technique: Multiplanar, multi sequential noncontrast MR imaging was performed of the lumbar spine. Comparison: None Findings: There is some motion degradation. Lumbar vertebral body stature is overall maintained. There is no significant marrow edema. There is grade 1 anterior spondylolisthesis at L4-5 on the order of about 5 mm. There is moderate to severe L4-5 degenerative disc disease, minimally at L3-4, mild disc desiccation at other lumbar levels. Conus terminates near L1-2. There is a small likely hemangioma of the posterior L3 vertebral body, also probable tiny focus of L4. There is minimal lumbar levoscoliosis. L1-L2, L2-3: These levels were not included on the axial images. Neural foramina and spinal canal are adequate. L3-L4: There is mild to moderate buckling of the ligamentum flavum and minimal facet degenerative change. Spinal canal is adequate. Neural foramina are overall adequate. L4-L5: There is partial uncovering of the posterior aspect of the disc due to spondylolisthesis with minimal superimposed disc osteophyte complex. There is mild to moderate buckling of the ligamentum flavum and mild facet degenerative change. In combination with grade 1 anterior spondylolisthesis, there is fairly severe narrowing of the far lateral recesses bilaterally greater on the right, also moderate to severe narrowing of the central canal with some preserved subarachnoid space. There is mild left and moderate to severe right neural foramina compromise, contact exiting right L4 nerve root by disc osteophyte complex and also posterior narrowing by facet and ligamentum flavum. L5-S1: There is mild facet degenerative change, minimal fluid in the facet articulations bilaterally. There is minimal narrowing of the far lateral recesses greater on the right, central canal adequate. There is mild narrowing of the right neural foramen with contact of the posterior surface of the exiting right L5 nerve root by facet. Left neural foramen is not significantly narrowed. Impression: 1. There is fairly severe lateral recess stenosis bilaterally greater on the right at L4-5 with contact of the descending L5 nerve roots, also moderate to severe narrowing of the central canal at this level. There is grade 1 anterior spondylolisthesis at L4-5 at which there is facet degenerative change. 2. There is moderate to severe narrowing of the right L4-5 neural foramen with contact of the exiting right L4 nerve root. There is minimal narrowing of left L4-5 and right L5-S1 neural foramina. 3. There is degenerative disc disease greatest at L4-5. Electronically signed by: Wale Potts MD (11/12/2019 10:58 AM) [id number]
== END | disposition home or self-care (01) ==
LOC: MRI 14:18
PROVIDERS: ATTEND Internal Medicine
DX: M51.17 Intervertebral disc disorders with radiculopathy, lumbosacral region (principal); M47.27 Other spondylosis with radiculopathy, lumbosacral region; M43.16 Spondylolisthesis, lumbar region; M25.78 Osteophyte, vertebrae; M48.07 Spinal stenosis, lumbosacral region
CPT/HCPCS: 72148

== ENCOUNTER → 2019-11-24 | Outpatient (CLI) | payer MEDICARE ==
[~2019-11-24] MED LIST changes: +HYDR-2761 PO; +IOHEXOL 240 MG/ML 50ML VIAL. PO ONE; +IOHEXOL 300 MG/ML 100ML VIAL. IV ONE
--- NOTE | 2019-11-24 10:26 | RAD ---
CT abdomen and pelvis with contrast History: Diverticulosis Technique: After the administration of intravenous contrast, CT imaging was performed of the abdomen and pelvis. Oral contrast was also given. Multiplanar images are reviewed. Exposure: One or more of the following individualized dose reduction techniques were utilized for this examination: 1. Automated exposure control 2. Adjustment of the mA and/or kV according to patient size 3. Use of iterative reconstruction technique. Comparison: None Findings: There is some motion degradation. Visualized heart is somewhat enlarged. No focal abnormality is identified liver other than some nonspecific calcifications. Gallbladder is present without obvious intraluminal abnormality by CT. Both kidneys enhance, no hydronephrosis. There is no adrenal nodularity. No focal abnormality is identified of the spleen or pancreas. Bowel is not significantly dilated. There is scattered moderate to severe colonic diverticulosis. There is some relative wall prominence such as of the sigmoid colon and descending colon although not well distended during exam for accurate evaluation for wall thickening. Appendix caliber is upper limits of normal at 0.6 cm although mostly filled with gas and no adjacent inflammatory change. No free air or free fluid is identified. There is grade 1 anterior spondylolisthesis at L4-5 at which there is facet degenerative change. There is moderate to severe degenerative disc disease at L4-5. There is likely moderate to severe narrowing of the right L4-5 neural foramen, minimal narrowing on the left. There is suspected moderate spinal stenosis at L4-5 including lateral recess stenosis bilaterally. Impression: 1. There is colonic diverticulosis. There is relative wall prominence of the descending and sigmoid colon although may be due to incomplete distention unless there is suspicion for mild colitis. Electronically signed by: Wale Potts MD (11/24/2019 10:24 AM) [id number]
== END | disposition home or self-care (01) ==
LOC: CT 12:13
PROVIDERS: ATTEND Internal Medicine
DX: K57.30 Diverticulosis of large intestine without perforation or abscess without bleeding (principal); K76.89 Other specified diseases of liver; M43.16 Spondylolisthesis, lumbar region; M51.36 Other intervertebral disc degeneration, lumbar region; M48.061 Spinal stenosis, lumbar region without neurogenic claudication; I51.7 Cardiomegaly; F17.200 Nicotine dependence, unspecified, uncomplicated; Z88.8 Allergy status to other drugs, medicaments and biological substances; Z79.899 Other long term (current) drug therapy
CPT/HCPCS: 74177; Q9966; Q9967

== ENCOUNTER → 2019-11-26 | Outpatient (CLI) | payer MEDICARE ==
[~2019-11-26] MED LIST changes: -IOHEXOL 240 MG/ML 50ML VIAL. PO ONE; -IOHEXOL 300 MG/ML 100ML VIAL. IV ONE
[2019-11-26 12:54] LABS: BASO # 0.1 x10^3/uL (0.0-0.2); BASO % 1 % (0-3); EOS # 0.2 x10^3/uL (0.0-0.7); EOS % 4 % (0-3); HEMATOCRIT 36.1 % (36.0-47.0); HEMOGLOBIN 11.8 g/dL (12.0-15.5); LYMPH # 0.7 x10^3/uL (1.0-4.8); LYMPH % 14 % (24-48); MEAN CORPUSCULAR HEMOGLOBIN 27 pg (25-35); MEAN CORPUSCULAR HGB CONC 33 g/dL (31-37); MEAN CORPUSCULAR VOLUME 84 fL (79-100); MONO # 0.5 x10^3/uL (0.0-1.1); MONO % 10 % (0-9); NEUT # 3.5 x10^3/uL (1.8-7.7); NEUT % 70 % (31-73); PLATELET COUNT 266 x10^3/uL (140-400); RED BLOOD COUNT 4.31 x10^6/uL (3.50-5.40); RED CELL DISTRIBUTION WIDTH 17.8 % (11.5-14.5); WHITE BLOOD COUNT 4.9 x10^3/uL (4.0-11.0)
== END | disposition home or self-care (01) ==
LOC: SURGPAT 11:58
PROVIDERS: ATTEND Obstetrics & Gynecology
DX: Z01.818 Encounter for other preprocedural examination (principal); Z11.59 Encounter for screening for other viral diseases; N81.10 Cystocele, unspecified; N81.6 Rectocele
CPT/HCPCS: 36415; 85025; U0003; C9803-CS

== ENCOUNTER 2019-12-02 13:03 | Observation (INO) | payer MEDICARE ==
--- NOTE | 2019-12-01 23:55 | HP ---
ADMIT DATE: 12/02/2019 HISTORY OF PRESENT ILLNESS: This patient is a 74-year-old female, who is a patient of Dr. Verduzco and referred for pelvic examination, also a bulge in the vaginal area that the patient is complaining, and has also backache with pelvic pain. She has had a hysterectomy before. The patient is scheduled at this time because of a large cystocele and rectocele that is noticed on the examination for surgery. ALLERGIES: None known. PAST MEDICAL HISTORY: Nothing of importance. REVIEW OF SYSTEMS: Essentially negative. PHYSICAL EXAMINATION: VITAL SIGNS: Being stable. HEENT: Within normal limits. LUNGS: Clear. HEART: Sounds regular sinus rhythm. ABDOMEN: Feels soft. PELVIC: Shows a large cystocele noticed in the vaginal area as a big bulge and on bimanual examination, no adnexal masses are palpable. She has got a small rectocele. Other than that, no vaginal bleeding. Her previous Pap smear has been normal. DIAGNOSES: Cystocele and rectocele. PLAN: Anterior and posterior colpoperineorrhaphy. The details of the surgery, the risks, and complications have been explained to the patient and the patient is willing for the surgery at this time. JOEY WILSON MD DR: MADI/lucy JOB#: [id number] / [id number]
[~2019-12-02] VITALS: Ht 165.1 cm; Wt 72.0 kg
[2019-12-02] VITALS (8 sets, daily range): BP systolic 142–160; BP diastolic 81–89
[~2019-12-02 13:03] MED LIST changes: +HYDROmorphone 2 MG/ML VIAL IV PRN; +IV RINGERS,LACTATED 1000ML 1,000 ML IV SCH; +LIDOCAINE 1% PF 2 ML VIAL. ID PRN; +MORPHINE SULFATE 2 MG/ML VIAL. IV PRN; +ONDANSETRON PF 4 MG/2 ML VIAL. IV PRN; +PROCHLORPERAZINE 10 MG/2 ML VIAL. IV PRN; +fentaNYL PF VIAL 100 MCG/2 ML VIAL IV PRN
[2019-12-02] MEDS ORDERED: LIDOCAINE 2% PF 5 ML VIAL. ONE (13:33)
[2019-12-02] MEDS ORDERED: PROPOFOL 10 MG/ML (20ML) VIAL. IV ONE (13:33)
[2019-12-02] MEDS ORDERED: SEVOFLURANE 61 TO 120 MINUTES. IH ONE (13:34)
[2019-12-02] MEDS ORDERED: DEXAMETHASONE SOD PHOS 4 MG/ML VIAL ONE ×2 (13:34→14:33)
[2019-12-02] MEDS ORDERED: ceFAZolin SODIUM IV Push 1 GM VIAL. IVP ONE ×2 (14:00→14:34)
[2019-12-02] MEDS ORDERED: fentaNYL PF VIAL 100 MCG/2 ML VIAL ONE ×3 (14:27→16:26)
[2019-12-02] MEDS ORDERED: ONDANSETRON PF 4 MG/2 ML VIAL. ONE (14:49)
[2019-12-02] MEDS ORDERED: ESTROGENS, CONJ VAGINAL CREAM 30GM TUBE. ONE (15:34)
--- NOTE | 2019-12-02 15:46 | PDOC ---
GENERAL General: 74yrs old female complaining of Bulge in Vaginal area associated with Pain VITAL SIGNS Vital Signs/I&O: Vital Signs Date Time Temp Pulse Resp B/P (MAP) Pulse Ox O2 Delivery O2 Flow Rate FiO2 12/02/19 13:51 97.3 91 18 175/85 99 Room Air 97.3 ALLERGIES Allergies: Allergies Coded Allergies Type Severity Reaction Last Updated Verified No Known Drug Allergies 12/02/19 No MEDS Medications: Current Medications Medications (Trade) Dose Ordered Sig/Cynthia Route PRN Reason Start Time Stop Time Status Last Admin Dose Admin Ringer's Solution 1,000 ml @ 30 mls/hr Q24H IV 12/02/19 07:00 12/02/19 18:59 12/02/19 13:55 Cefazolin Sodium (Ancef) 1 gm 1X ONCE IVP 12/02/19 14:00 12/02/19 14:01 DC 12/02/19 14:30 ASSESSMENT & PLAN A&P Under GA Anterior and Posterior Colpoperineorrhaphy done. EBL 75cc. Justicifation of Admission Dx: Justifications for Admission: Justification of Admission Dx: Yes Comments: Admitted for Cystocoel and Rectocoel. JOEY WILSON MD Dec 02, 2019 15:46
[2019-12-02] MEDS: fentaNYL PF VIAL 100 MCG/2 ML VIAL IV PRN ×3 (15:55→16:37)
[2019-12-02] MEDS ORDERED: oxyCODONE/APAP 5/325 1 TAB TABLET PO PRN (16:00)
[2019-12-02] MEDS ORDERED: ACETAMINOPHEN 325 MG TABLET. PO PRN (16:00)
[2019-12-02] MEDS ORDERED: ESTROGENS, CONJ VAGINAL CREAM 30GM TUBE. VG SCH (16:00)
--- NOTE | 2019-12-02 19:19 | OP ---
DATE OF SURGERY: PREOPERATIVE DIAGNOSES: Cystocele and rectocele. POSTOPERATIVE DIAGNOSES: Cystocele and rectocele. PROCEDURE PERFORMED: Anterior and posterior colpoperineorrhaphy. DESCRIPTION OF PROCEDURE: The patient was taken to the operating room under general anesthesia. She was placed in a dorsal lithotomy position. Perineum was prepped and draped in the usual manner. A weighted speculum was inserted in the posterior vaginal wall. A Phipps catheter was introduced in the bladder for continuous bladder drainage. A midline horizontal incision was made first in the anterior vaginal wall and also a midline vertical incision was made. The vesicovaginal fascia was dissected. Obliteration of the cystocele was done. Excessive mucous membrane on either side was excised and subjected for pathological examination. Debora stitches were applied to obliterate the cystocele with 2-0 chromic catgut sutures. After this, the anterior vaginal wall was brought together on either side in the midline and sutured together using 0 chromic catgut sutures. After the obliteration of the cystocele and the sutures placed, the posterior perineorrhaphy was proceeded by making an incision at the mucocutaneous junction and also a midline vertical incision was made in the posterior vaginal wall. Rectovaginal fascia was dissected. Obliteration of the rectocele was done and a pursestring suture was placed obliterating the rectocele with 0 chromic catgut sutures. After this, excessive vaginal mucous membrane was excised on either side. Both vaginal mucous membranes were brought together midline and sutured together using 0 chromic catgut sutures and closure of the incision was done. After this, the vaginal packing with a 2-inch gauze with Premarin vaginal cream was inserted into the vaginal area. The patient was sent to the recovery room in good condition. No complications were encountered at the time of the procedure. Estimated blood loss was about 75 mL. Postoperative condition was good. JOEY WILSON MD DR: MADI/lucy JOB#: [id number] / [id number]
[2019-12-02] MEDS: oxyCODONE/APAP 5/325 1 TAB TABLET PO PRN (20:42)
[2019-12-02] MEDS: IBUPROFEN 400 MG TABLET. PO PRN (20:43)
[2019-12-03] MEDS: oxyCODONE/APAP 5/325 1 TAB TABLET PO PRN ×2 (00:41→05:01)
[2019-12-03 00:45] VITALS: BP 132/72
[2019-12-03] MEDS: IBUPROFEN 400 MG TABLET. PO PRN (05:01)
[2019-12-03 05:15] VITALS: BP 148/85
--- NOTE | 2019-12-03 06:14 | NUR ---
Patient 2L of O2 d/c'd. Patient oxygen saturation was 95%-99% throughout the shift. Pt was able to use incentive spirometer a few time during the night. Denies shortness of breath.
--- NOTE | 2019-12-03 08:24 | PDOC ---
GENERAL General: Patient doing fine today. No Problems. VITAL SIGNS Vital Signs/I&O: Vital Signs Date Time Temp Pulse Resp B/P (MAP) Pulse Ox O2 Delivery O2 Flow Rate FiO2 12/03/19 05:15 97.5 69 18 148/85 (106) 98 2.0 97.5 12/03/19 05:01 Room Air I & O 12/02/19 12/02/19 12/03/19 15:00 23:00 07:00 Intake Total 850 ml Output Total 1575 ml 350 ml Balance -725 ml -350 ml ALLERGIES Allergies: Allergies Coded Allergies Type Severity Reaction Last Updated Verified No Known Drug Allergies 12/02/19 No MEDS Medications: Current Medications Medications (Trade) Dose Ordered Sig/Cynthia Route PRN Reason Start Time Stop Time Status Last Admin Dose Admin Cefazolin Sodium (Ancef) 1 gm 1X ONCE IVP 12/02/19 14:00 12/02/19 14:01 DC 12/02/19 14:30 Estrogens Conjugated (Premarin) 30 nika STK-MED ONCE .ROUTE 12/02/19 15:34 12/02/19 15:35 DC 12/02/19 15:35 Oxycodone/ Acetaminophen (Percocet 5/325) 1 tab PRN Q4HRS PRN PO MODERATE-SEVERE PAIN 12/02/19 16:00 12/02/19 20:32 DC 12/02/19 19:46 Oxycodone/ Acetaminophen (Percocet 5/325) 2 tab PRN Q4HRS PRN PO MODERATE-SEVERE PAIN 12/02/19 20:30 12/03/19 05:01 Ibuprofen (Motrin) 800 mg Q8HRS PRN PO INFLAMMATION 12/02/19 20:45 12/03/19 05:01 ASSESSMENT & PLAN A&P Vaginal Packing and Catheter removed today. Patient can go home today. Will see her in office in2 weeks. Justicifation of Admission Dx: Justifications for Admission: Justification of Admission Dx: Yes JOEY WILSON MD Dec 03, 2019 08:24
[2019-12-03 12:45] VITALS: BP 160/75
[2019-12-03 16:20] VITALS: BP 166/88
--- NOTE | 2019-12-03 16:20 | NUR ---
Discharge instructions given to pt. Pt verbalized understanding. Pt discharged home, ambulated out to daughter waiting.
--- NOTE | 2019-12-04 17:07 | PATHOLOGY ---
[facility] Accession Number: [id number] . 01 Material submitted: . vagina - ANTERIOR AND POSTERIOR TISSUE. Modifiers: anterior, posterior . 01 Clinical history: . Rectocele and cystocele . 02 Diagnosis: Segments (2) of squamous mucosa and underlying fibromuscular tissue, anterior and posterior colporrhaphy: - Squamous epithelial hyperplasia and chronic inflammation, focal. (JPM:otto; 12/04/2019) QMS 12/04/2019 1305 Local . 02 Electronically signed: . Vadim Anglin MD, Pathologist NPI- [id number] . 01 Gross description: . The specimen is received in formalin, labeled "Kenneth, Shirlene, anterior and posterior tissue" and consists of 4 segments of pink-calvert smooth glistening tissue measuring between 1.7 x 0.9 x 0.5 cm and 4.0 x 0.9 x 0.5 cm. No surface lesions are grossly identified. Electronic Engraver sections are submitted in A1-A2. (SDY; 12/03/2019) SYU/SYU 12/03/2019 1530 Local . 02 Pathologist provided ICD-10: N76.1 . 02 CPT . 072803 Specimen Comment: A courtesy copy of this report has been sent to [phone], [phone] Specimen Comment: [id number] Specimen Comment: Report sent to / DR CHRISTENSEN Performed at: 01 [facility] [address], [place] [id number] MD Minh Jordan MD Phone: [phone] Performed at: 02 [facility] [address] [place], [place] [id number] MD Vadim Anglin MD Phone: [phone]
== END 2019-12-03 16:32 | disposition home or self-care (01) ==
LOC: SURG 13:03 → 3 NORTH 16:02
PROVIDERS: ADMIT Obstetrics & Gynecology; ATTEND Obstetrics & Gynecology
DX: N81.10 Cystocele, unspecified (principal); N81.6 Rectocele
CPT/HCPCS: 36415; 57210; 86850; 86870; 86900; 86901; A7015; G0378; G0379; J0690; J1100; J2405; J2704; J3010; J3490

== ENCOUNTER → 2020-10-31 | Outpatient (CLI) | payer MEDICARE ==
[~2020-10-31] MED LIST changes: +AMLO-187 PO; -AMLO10TA8 PO; -HYDROmorphone 2 MG/ML VIAL IV PRN; -IV RINGERS,LACTATED 1000ML 1,000 ML IV SCH; -LIDOCAINE 1% PF 2 ML VIAL. ID PRN; +LISI10TA16 PO; -LISI10TA2 PO; -MORPHINE SULFATE 2 MG/ML VIAL. IV PRN; -ONDANSETRON PF 4 MG/2 ML VIAL. IV PRN; -PROCHLORPERAZINE 10 MG/2 ML VIAL. IV PRN; -fentaNYL PF VIAL 100 MCG/2 ML VIAL IV PRN
--- NOTE | 2020-10-31 13:30 | RAD ---
EXAM: Bilateral digital screening mammogram with tomosynthesis. HISTORY: 75-year-old female presents for screening mammography. TECHNIQUE: Full-field digital craniocaudal and mediolateral oblique 2D and 3D tomosynthesis images of both breasts are obtained for evaluation. Computer aided detection was applied. COMPARISON: 10/20/2019 BREAST PARENCHYMAL DENSITY: Level B - Scattered fibroglandular densities. FINDINGS: There is no new suspicious mass, microcalcification or region of architectural distortion. IMPRESSION: BI-RADS Category 2: Benign finding(s). RECOMMENDATION: Annual mammography is recommended. If your mammogram demonstrates that you have dense breast tissue, which could hide abnormalities, and if you have other risk factors for breast cancer that have been identified, you might benefit from s upplemental screening tests that may be suggested by your ordering physician. Dense breast tissue, i n and of itself, is a relatively common condition. This information is not provided to cause undue c oncern, but rather to raise your awareness and to promote discussion with your physician regarding th e presence of other risk factors, in addition to dense breast tissue. A report of your mammography re sults will be sent to you and your physician. You should contact your physician if you have any ques tions or concerns regarding this report. Mammography is a sensitive method for finding small breast cancers, but it does not detect them all a nd is not a substitute for careful clinical examination. A negative mammogram does not negate a clin ically suspicious finding and should not result in delay in biopsying a clinically suspicious abnorma lity. PQRS compliance statement - Patient information was entered into a reminder system with a target due date for the next mammogram. "Our facility is accredited by the [employer] Mammography Program." Electronically signed by: Sri Leigh MD (10/31/2020 1:28 PM) [id number]
== END ==
LOC: MAMMO 12:53
PROVIDERS: ATTEND Internal Medicine
DX: Z12.31 Encounter for screening mammogram for malignant neoplasm of breast (principal)
CPT/HCPCS: 77063; 77067

== ENCOUNTER → 2021-01-18 | Outpatient (CLI) | payer MEDICARE ==
[~2021-01-18] MED LIST changes: +CELE200C PO; +DICL20GE TP; +FOLI0.8T5 PO; +LIDO5JEL3 MM; +MUPI22OI2 TP; +TIZA4TAB8 PO
--- NOTE | 2021-01-18 15:17 | KCIC ---
EXAM: Lumbar spine MRI without contrast. HISTORY: Pain. TECHNIQUE: Multiplanar, multisequence magnetic resonance imaging of the lumbar spine was performed wi thout contrast. COMPARISON: 11/10/2019 FINDINGS: There is grade 1 anterolisthesis of L4 on L5, measuring 6 mm. There is grade 1 anterolisthe sis of L3 on L4 and L5 on S1, measuring 3 mm. There is multilevel endplate remodeling. There is disc space narrowing predominantly at L4-L5. There are few osseous hemangiomas. There is no fracture or lopez spicious osseous lesion. The conus terminates at L1-L2. At L1-L2, there is a mild disc bulge and endplate remodeling. There is mild bilateral facet arthropat hy. There is no stenosis. At L2-L3, there is a mild disc bulge and endplate remodeling. There is mild to moderate bilateral fac et arthropathy. There is slight hypertrophy of the ligamentum flavum. There is no stenosis. At L3-L4, there is a mild disc bulge and moderate endplate remodeling. There is moderate bilateral fa cet arthropathy. There is hypertrophy of the ligamentum flavum. There is grade 1 anterolisthesis. The re is mild bilateral foraminal stenosis with abutment the exiting left L3 nerve root. There is minima l central canal stenosis. At L4-L5, there is a moderate disc bulge and endplate remodeling. There is severe bilateral facet art hropathy. There is hypertrophy of the ligamentum flavum. There is grade 1 anterolisthesis. There is m oderate right and mild left foraminal stenosis with abutment of the exiting right greater than left L 4 nerve roots. There is moderate to severe central canal stenosis. At L5-S1, there is a left foraminal to extra foraminal disc protrusion and slight superior extrusion with osteophyte complex superimposed on a disc bulge and endplate remodeling. There is moderate bilat eral facet arthropathy. There is grade 1 anterolisthesis. There is juyc-tl-ewkavlef right and moderat e left foraminal stenosis with abutment of the exiting left greater than right L5 nerve roots. There is narrowing of the left lateral recess. IMPRESSION: 1. Multilevel degenerative change involving the lumbar spine, described in detail above. This is asso ciated with mild bilateral foraminal and minimal central canal stenosis at L3-L4, moderate right and mild left foraminal and moderate to severe or canal stenosis at L4-5 and moderate right and moderate left foraminal stenosis and narrowing of the left lateral recess at L5-S1. These findings are very si milar compared to the prior study, allowing for differences in technique. 2. Degenerative grade 1 anterolisthesis at the mid lower lumbar levels. Electronically signed by: Sri Leigh MD (01/18/2021 3:15 PM) [id number]
== END ==
LOC: KCIC MRI 13:05
PROVIDERS: ATTEND Internal Medicine
DX: M47.27 Other spondylosis with radiculopathy, lumbosacral region (principal); M51.27 Other intervertebral disc displacement, lumbosacral region; M48.07 Spinal stenosis, lumbosacral region; M43.16 Spondylolisthesis, lumbar region; M25.78 Osteophyte, vertebrae
CPT/HCPCS: 72148

== ENCOUNTER → 2021-07-05 | Outpatient (CLI) | payer MEDICARE ==
--- NOTE | 2021-07-05 16:05 | KCIC ---
EXAMINATION: CT LEFT KNEE WITHOUT IV CONTRAST CLINICAL HISTORY: Osteoarthritis left knee, preoperative planning. TECHNIQUE: Noncontrast serial axial images obtained through the hip, knee, and ankle with sagittal an d coronal reconstructions through the knee utilizing [employer] protocol for preoperative planning. CT Dose Reduction Employed: One or more of the following individualized dose reduction techniques wer e utilized for this examination: 1. Automated exposure control 2. Adjustment of the mA and/or kV ac cording to patient size 3. Use of iterative reconstruction technique. COMPARISON: Left knee radiographs 06/21/2021 FINDINGS: Tricompartmental degenerative changes in the left knee, advanced in the medial compartment. No eviden ce of acute fracture. Small joint effusion with several calcified joint bodies. Moderate Pedroza's cyst . Degenerative changes in the left hip, ankle, and hindfoot incompletely evaluated. No evidence of acut e fracture. Vascular calcifications. Partially visualized colonic diverticulosis. IMPRESSION: Tricompartmental degenerative changes left knee, advanced in the medial compartment. No evidence of acute fracture or unexpected findings. Electronically signed by: Pedro Almodovar DO (07/05/2021 4:02 PM) [email or web address]
== END ==
LOC: KCIC CT 12:40
PROVIDERS: ATTEND Orthopaedic Surgery
DX: M17.12 Unilateral primary osteoarthritis, left knee (principal); M25.462 Effusion, left knee; K57.30 Diverticulosis of large intestine without perforation or abscess without bleeding
CPT/HCPCS: 73700

== ENCOUNTER → 2021-08-22 | Outpatient (CLI) | payer MEDICARE ==
[~2021-08-22] MED LIST changes: +ERGO400T2 PO; +FERR160T5 PO
--- NOTE | 2021-08-22 14:20 | EKG ---
[facility] [address] [place] [address] Test Date: 2021-08-22 Test Time: 14:17:14 Pat Name: MOOSE PULIDO Department: Room: Gender: F Gate Keeper: CATE : 1945 Requested By: WAYLON ZURITA Order Number: [id number] Reading MD: Miguel Sosa Measurements Intervals [place] Rate: 76 P: 32 MO: 162 QRS: -23 QRSD: 84 T: 47 QT: 354 QTc: 402 Interpretive Statements SINUS RHYTHM LEFT ATRIAL ABNORMALITY LEFTWARD AXIS CONSIDER LEFT VENTRICULAR HYPERTROPHY ABNORMAL ECG Electronically Signed On 08-24-2021 8:19:31 [employer]ITE [employer] TANK OPERATOR by Miguel Sosa
[2021-08-22 14:28] LABS: BASO # 0.1 x10^3/uL (0.0-0.2); BASO % 2 % (0-3); EOS # 0.3 x10^3/uL (0.0-0.7); EOS % 6 % (0-3); HEMATOCRIT 34.1 % (36.0-47.0); HEMOGLOBIN 10.8 g/dL (12.0-15.5); LYMPH # 0.9 x10^3/uL (1.0-4.8); LYMPH % 16 % (24-48); MEAN CORPUSCULAR HEMOGLOBIN 26 pg (25-35); MEAN CORPUSCULAR HGB CONC 32 g/dL (31-37); MEAN CORPUSCULAR VOLUME 83 fL (79-100); MONO # 0.5 x10^3/uL (0.0-1.1); MONO % 9 % (0-9); NEUT # 3.7 x10^3/uL (1.8-7.7); NEUT % 68 % (31-73); PLATELET COUNT 306 x10^3/uL (140-400); RED BLOOD COUNT 4.11 x10^6/uL (3.50-5.40); WHITE BLOOD COUNT 5.4 x10^3/uL (4.0-11.0)
[2021-08-22 14:37] LABS: ALBUMIN 3.5 g/dL (3.4-5.0); CALCIUM 9.5 mg/dL (8.5-10.1); CREATININE 1.2 mg/dL (0.6-1.0); GFR 53.1; POTASSIUM 3.5 mmol/L (3.5-5.1)
--- NOTE | 2021-08-22 14:55 | RAD ---
AP and Lateral Views of the Chest 08/22/2021 2:35 PM Indication: Preoperative Comparison: None Findings: There is no focal consolidation or infiltrate identified. Heart size is top normal.. There is no evidence of pneumothorax or pleural effusion. No acute osseous abnormalities are identified. Impression: No evidence of acute cardiopulmonary process. Electronically signed by: Cuong Chew MD (08/22/2021 2:52 PM) [id number]
[2021-08-23 04:25] LABS: HEMOGLOBIN A1C 6.2 % (4.8-5.6)
== END ==
LOC: SURGPAT 13:27
PROVIDERS: ATTEND Orthopaedic Surgery
DX: Z01.818 Encounter for other preprocedural examination (principal); M17.12 Unilateral primary osteoarthritis, left knee
CPT/HCPCS: 36415; 71046; 80048; 82040; 82306; 83036; 85025; 85610; 85651; 85730; 87641; 93005

== ENCOUNTER → 2021-09-08 | Outpatient (CLI) | payer MEDICARE ==
[~2021-09-08] MED LIST changes: +ASPI325T11 PO; +OXYC5TAB4 PO
== END ==
LOC: LAB 09:55
PROVIDERS: ATTEND Orthopaedic Surgery
DX: Z01.812 Encounter for preprocedural laboratory examination (principal); Z20.822 Contact with and (suspected) exposure to COVID-19
CPT/HCPCS: U0003

== ENCOUNTER 2021-09-11 08:13 | Inpatient (IN) | payer MEDICARE ==
[2021-08-22 14:01] VITALS: BP 155/83
[~2021-09-11] VITALS: Ht 165.1 cm; Wt 82.1 kg
[2021-09-11] VITALS (11 sets, daily range): BP systolic 127–182; BP diastolic 76–147
[~2021-09-11 08:13] MED LIST changes: -ASPI325T11 PO; +GABAPENTIN 300 MG CAPSULE. PO PRN; +HYDROmorphone 2 MG/ML INJ. IVP PRN; +IV RINGERS,LACTATED 1000ML 1,000 ML IV SCH; +MORPHINE SULFATE 2 MG/ML INJ. IVP PRN; -OXYC5TAB4 PO; +PROCHLORPERAZINE 10 MG/2 ML VIAL. IVP PRN; +PROPOFOL 10 MG/ML (20ML) VIAL. IV ONE; +ROCURONIUM 50 MG/5 ML VIAL. ONE; +TRANEXAMIC ACID 1,000 MG in IV NS 50ML -- 1ST BAG INJ ONE; +TRANEXAMIC ACID 1,000 MG in IV NS 50ML -- 2ND BAG INJ ONE; +TV=100ml MORPHINE 5 MG, KETOROLAC 30 MG, ROPIVacaine 0.5% PF 60 ML, EPINEPH... INT ART ONE; +TV=62ml MORPHINE 5 MG, KETOROLAC 30 MG, ROPIV, EPI INT ART ONE; +fentaNYL PF VIAL 100 MCG/2 ML VIAL IVP PRN; +fentaNYL PF VIAL 100 MCG/2 ML VIAL ONE
[2021-09-11] MEDS: ACETAMINOPHEN 500 MG TABLET PO PRN ×2 (09:02→15:39)
[2021-09-11] MEDS ORDERED: MORPHINE SULFATE 2 MG/ML INJ. IVP PRN (10:00)
[2021-09-11] MEDS ORDERED: METOCLOPRAMIDE HCL 10 MG/2 ML VIAL. IVP PRN (10:00)
[2021-09-11] MEDS ORDERED: fentaNYL PF VIAL 100 MCG/2 ML VIAL IVP PRN (10:00)
[2021-09-11] MEDS ORDERED: PROCHLORPERAZINE 5 MG TABLET. PO PRN (10:00)
[2021-09-11] MEDS ORDERED: 0.9 % SODIUM CHLORIDE 10 ML DISP.SYRIN. IV PRN (10:00)
[2021-09-11] MEDS ORDERED: diphenhydrAMINE 50 MG/ML VIAL IVP PRN (10:00)
[2021-09-11] MEDS ORDERED: DEXTROSE 50% 25 GM / 50ML DISP.SYRIN. IV PRN (10:00)
[2021-09-11] MEDS ORDERED: ZOLPIDEM 5 MG TABLET. PO PRN (10:00)
[2021-09-11] MEDS ORDERED: IV DEXTROSE 5% 250 ML BAG. IV PRN (10:00)
[2021-09-11] MEDS ORDERED: CALCIUM CARBONATE 500 MG TAB.CHEW PO PRN (10:00)
[2021-09-11] MEDS ORDERED: LIDOCAINE 1% PF 5 ML VIAL. ONE (10:03)
[2021-09-11] MEDS ORDERED: TRANEXAMIC ACID in NS IVPB 100 ML ONE (10:03)
[2021-09-11] MEDS ORDERED: DEXAMETHASONE SOD PHOS 4 MG/ML VIAL ONE (10:03)
[2021-09-11] MEDS ORDERED: TRANEXAMIC ACID in NS IVPB 50 ML ONE (10:29)
[2021-09-11] MEDS ORDERED: SUGAMMADEX SODIUM 200 MG/2 ML VIAL. IVP ONE (10:30)
[2021-09-11] MEDS ORDERED: HYDROmorphone 2 MG/ML INJ. ONE (10:31)
--- NOTE | 2021-09-11 11:40 | PDOC4 ---
OPERATIVE NOTE Date: Date: Sep 11, 2021 Pre-Op Diagnosis: Severe degenerative joint disease left knee Post-Op Diagnosis: Same Procedure Performed: Left total knee arthroplasty Surgeon: Misha Anesthesia Type: General Blood Loss: 50 cc Specimans Obtained: Bone left knee Findings: See dictation Complications: None WAYLON ZURITA Jr., DO Sep 11, 2021 11:40
[2021-09-11] MEDS ORDERED: PHENYLEPHRINE in 0.9% NACL PF 1 MG/10 ML SYRINGE. IV ONE (11:49)
[2021-09-11] MEDS: ONDANSETRON ODT 4 MG TAB.RAPDIS. PO SCH ×2 (12:00→18:00)
[2021-09-11] MEDS: ONDANSETRON PF 4 MG/2 ML VIAL. IVP SCH ×2 (12:00→15:33)
[2021-09-11] MEDS ORDERED: fentaNYL PF VIAL 100 MCG/2 ML VIAL ONE (12:13)
--- NOTE | 2021-09-11 12:38 | RAD ---
Exam Date: 09/11/2021 12:00 PM XR [id number]_LT 1-2 VIEWS Indication: Reason: POST OP / Spl. Instructions: / History: . FINDINGS: Status post total knee arthroplasty with patella resurfacing. No evidence for hardware fa ilure, loosening, acute fracture, or dislocation. Alignment is anatomic. Soft tissue air is consis tent with recent postoperative state. IMPRESSION: Status post total knee arthroplasty as above. Electronically signed by: Gordon Tyson MD (09/11/2021 12:36 PM) [id number]
[2021-09-11] MEDS: LISINOPRIL 20 MG TABLET PO SCH (15:27)
[2021-09-11] MEDS: IV NORMAL SALINE 1000ML BAG 1,000 ML IV SCH (15:33)
[2021-09-11] MEDS ORDERED: ASPI325T11 PO (15:47)
--- NOTE | 2021-09-11 16:47 | OP ---
DATE OF SURGERY: 09/11/2021 PREOPERATIVE DIAGNOSIS: Severe degenerative joint disease, left knee. POSTOPERATIVE DIAGNOSIS: Severe degenerative joint disease, left knee. PROCEDURE: Left total knee arthroplasty. SURGEON: Baljinder Cabral Jr, DO. DOWEL INSERTING MACHINE OPERATOR: Jose Gill. ANESTHESIA: General. COMPLICATIONS: None. ESTIMATED BLOOD LOSS: 50 mL. PROCEDURE: The left lower extremity was then prepped and draped in a sterile fashion. After exsanguination, tourniquet was inflated. Incision was made anteriorly through skin and subcutaneous tissues down to the extensor mechanism. Superficial bleeding was coagulated using a Bovie knife. A medial parapatellar incision was then made. Following this, the patella was everted and there was noted to be severe degenerative changes in all compartments of the knee at this point. Attention was then directed to the patella and after this was everted, measured and cut to the appropriate size, 32 was most appropriate for the size of the back of the patella; therefore, after the cut was made, the guide was placed in appropriate position and the drill holes were made, 3 in number. The trial patella was then placed in this area. The knee was taken into a flexed position. Retractors were placed medially and laterally appropriately around the femur for protection. The F1 guide was then placed in appropriate position on the femur. The drill was placed and then this was removed and a curette was used to remove the remaining cartilage from the medial and lateral femoral condyles. The F2 guide was then placed down upon the bone surfaces drill holes were made for the component. These were on the distal femur. Following this, 2 more drill holes were made and filled with pins proximally on the anterior femur followed by a locking pin on the anterior femur. The flange was then removed with the cutting guide remaining and the distal cut was made. This was noted to be a good flush cut. Therefore, all pins were removed. Two pins were placed in the distal portion of the femur, which had been predrilled and the next guide was then placed and held in appropriate position and orientation and again this was pinned into position. The anterior and posterior cuts were then made as well as the lug holes distally for the femoral position. The proximal pin was removed from the guide and then the chamfer cut was made as well. This was all removed in its entirety and the final femoral cutting block was placed on the distal femur and the final chamfer cuts were made. The trial was noted to fit securely. Therefore, this was removed and then the Hohmanns were then placed medially, laterally with a retractor also posteriorly. Medial and lateral meniscal remnants were removed as well as the ACL. The PCL remained intact and then the external tibial guide was held in appropriate position and orientation. After remaining cartilage was removed from the proximal tibia, the guide was placed and noted to be very secure and in good position. Therefore, this was held with pins and then the cut was made in the tibia. The trials were then placed after removal of the remainder of the pins. The trials were noted to be in good position and orientation. There was balancing and this was equal balance in both flexion as well as extension. After this was done, these was marked for rotation on the tibial side of the joint. All trials were then removed and the trial guide was then placed in appropriate position and held with pins and then the drill followed by the keel were placed to the appropriate depth. This was subsequently removed. The Aquamantys was then used on the posterior capsular structures medially, laterally and along the area of the medial and lateral aspects of the knee. Also, anteriorly. This was done while cement was mixed on the back table and tranexamic acid was placed in the depths of the knee while the cement was being mixed. The knee was then taken into a flexed position. After this was suctioned dry completely, the cement was placed on the cut surfaces of the tibia and the femur and the tibia was impacted first, followed by the femur. This was held in extension until hardening of cement. The cement was placed on the patella and the patella was held with the patellar clamp with the actual patellar component in place. After excess cement was removed and hardening of cement, there was also some more cement that was removed using a small osteotome. This was trialled for this patient. A medial 6 and a lateral B were the most appropriate sizes for the insert. Therefore, the trials were then subsequently removed. The medial 6 was placed followed by the lateral B. This was noted to be stable and balance in both flexion as well as extension, taken through range of motion, noted to be stable with proper tracking in patellofemoral joint noted. Tourniquet was deflated with good return of pulses and capillary refill with no excessive bleeding noted. This was irrigated using iodine solution and was completely irrigated out. The medial parapatellar incision was then closed with a running suture. This was then taken through range of motion and noted to be secured and completely sealed. Superficial tissues and skin was reapproximated. Local was placed within the area of the incision. Sterile dressing was applied. The patient was then taken from the operative bed to the postoperative bed, taken to the PACU in stable condition. ANEL DR: Denise TID: [id number]
[2021-09-11] MEDS: FERROUS SULFATE 325 MG TABLET. PO SCH (17:59)
[2021-09-11] MEDS ORDERED: KETOROLAC 30MG VIAL 30 MG, BUPIVACAINE MPF 0.25% 20 ML, EPINEPHrine 0.5 MG in TOTAL VOL... INT ART SCH (18:00)
[2021-09-11] MEDS: oxyCODONE IR 5 MG TABLET PO PRN (18:02)
[2021-09-11] MEDS: ASPIRIN ENTERIC COATED 325 MG TABLET.DR. PO SCH (21:09)
[2021-09-11] MEDS: tiZANidine 4 MG TABLET. PO PRN (21:09)
[2021-09-12] MEDS: ONDANSETRON PF 4 MG/2 ML VIAL. IVP SCH ×2 (00:16→05:43)
[2021-09-12] MEDS: ONDANSETRON ODT 4 MG TAB.RAPDIS. PO SCH ×2 (00:16→05:43)
[2021-09-12 03:00] VITALS: BP 137/65
[2021-09-12] MEDS: GABAPENTIN 100 MG CAPSULE. PO SCH ×3 (05:44→22:24)
[2021-09-12] MEDS ORDERED: MAGNESIUM HYDROXIDE 2,400 MG/30 ML ORAL.SUSP. PO PRN (06:00)
[2021-09-12 07:00] VITALS: BP 134/65
[2021-09-12] MEDS ORDERED: ASPIRIN 325 MG TABLET PO SCH (08:00)
[2021-09-12] MEDS: ASPIRIN ENTERIC COATED 325 MG TABLET.DR. PO SCH ×2 (08:53→22:24)
[2021-09-12] MEDS: MULTIVITAMIN with MINERAL TABLET. PO SCH (08:53)
[2021-09-12] MEDS: SENNOSIDES/DOCUSATE 8.6/50MG TABLET. PO SCH (08:54)
[2021-09-12] MEDS: tiZANidine 4 MG TABLET. PO PRN ×2 (08:54→16:15)
[2021-09-12] MEDS: FERROUS SULFATE 325 MG TABLET. PO SCH ×2 (08:54→17:52)
[2021-09-12] MEDS: ACETAMINOPHEN 500 MG TABLET PO SCH ×3 (08:54→22:24)
[2021-09-12] MEDS: MELOXICAM 7.5 MG TABLET PO SCH (08:54)
[2021-09-12] MEDS: LISINOPRIL 20 MG TABLET PO SCH (08:55)
--- NOTE | 2021-09-12 09:46 | PDOC ---
Provider Note Date of Service: DATE: 09/12/21 TIME: 09:46 Provider Note Pt seen,full consult dictated.#[id number]. Justifications for Admission Other Justification JAYSON CHRISTENSEN MD Sep 12, 2021 09:46
[2021-09-12 11:00] VITALS: BP 119/48
[2021-09-12] MEDS: IV NORMAL SALINE 1000ML BAG 1,000 ML IV SCH (11:00)
[2021-09-12] MEDS ORDERED: ONDANSETRON PF 4 MG/2 ML VIAL. IVP PRN (12:00)
[2021-09-12] MEDS ORDERED: ONDANSETRON ODT 4 MG TAB.RAPDIS. PO PRN (12:00)
[2021-09-12] MEDS: oxyCODONE IR 5 MG TABLET PO PRN ×2 (13:17→17:52)
[2021-09-12 15:00] VITALS: BP 162/75
--- NOTE | 2021-09-12 15:22 | PN ---
DATE: 09/12/2021 She is postoperative day #1 for a left total knee arthroplasty. She is doing very well. She describes her pain as being around a 5-6 today; however, the dressings were intact. No excessive drainage is noted at this point. No signs or symptoms of a DVT. Her antibiotics have been completed at this point. She will continue with DVT prophylaxis. Continue with physical therapy, occupational therapy, etc. We will continue with this obviously until we see and check her progress for possibility of discharge home, but we will make sure she is doing physical and occupational therapy much better at that point as well as pain brought under control where it is much less than [address] ROB [address]: Denise TID: [id number]
[2021-09-12] MEDS ORDERED: BISACODYL 10 MG SUPP.RECT. PR PRN (16:00)
--- NOTE | 2021-09-12 17:42 | HP ---
DATE OF SERVICE: 09/12/2021 ADMIT DATE: 09/11/2021 MEDICAL HISTORY AND PHYSICAL REASON FOR ADMISSION TO THE HOSPITAL: Elective admission for left total knee arthroplasty. HISTORY OF PRESENT ILLNESS: The patient is a 76-year-old female patient well known to me, history of arthritis. She also has history of DJD. She had seen Rheumatology, referred to Orthopedic and the patient was admitted electively for left knee replacement. I was asked to see for primary care. PAST MEDICAL HISTORY: Hypertension, diverticulosis, GERD. ALLERGIES: No known allergies. MEDICATIONS: The patient is on aspirin 81 mg, Voltaren gel, folic acid daily, hydrocodone, Lidoderm patch, methotrexate 2.5 mg 6 tablets for rheumatoid arthritis, Celebrex for pain, amlodipine 10 mg daily, lisinopril 40 mg daily, tizanidine 4 mg daily. PERSONAL HISTORY: Denies smoking, alcohol, drug abuse. FAMILY HISTORY: Unremarkable. REVIEW OF SYMPTOMS: Denies any chest pain, shortness of breath. PHYSICAL EXAMINATION: GENERAL: She is sitting in chair and brushing her teeth. VITAL SIGNS: Stable. Temperature 97, pulse 67, respirations 20, blood pressure 127/76 and 99 on room air. HEENT: Head is atraumatic. Pupils equal. Oral cavity, no congestion. NECK: Supple. CHEST: Symmetrical. LUNGS: Clear. ABDOMEN: Soft. No mass palpable. EXTERNAL GENITALIA: No Phipps. EXTREMITIES: She had a dressing in the left knee. NEUROLOGIC: No focal deficits. LABORATORY DATA: Preop labs were unremarkable. COVID test negative. FINAL IMPRESSION: 1. Elective admission for total knee replacement, left. 2. Rheumatoid arthritis, on methotrexate. 3. Hypertension. PLAN: At this time, the patient is admitted after surgery and pain control. Resume blood pressure medications and see how she improves. Again, thank you for allowing me to participate in the care of this patient. MARCY DR: Rosette TID: [id number]
[2021-09-12 19:35] VITALS: BP 112/67
[2021-09-12 23:27] VITALS: BP 178/77
[2021-09-13 02:55] VITALS: BP 198/92
[2021-09-13] MEDS: ACETAMINOPHEN 500 MG TABLET PO SCH ×4 (03:00→20:21)
[2021-09-13] MEDS ORDERED: PROCHLORPERAZINE 10 MG/2 ML VIAL. IV PRN (03:30)
[2021-09-13] MEDS: GABAPENTIN 100 MG CAPSULE. PO SCH ×3 (06:00→22:21)
[2021-09-13 07:00] VITALS: BP 148/63
[2021-09-13 08:10] LABS: HEMATOCRIT 29.8 % (36.0-47.0); HEMOGLOBIN 9.5 g/dL (12.0-15.5)
[2021-09-13] MEDS: ASPIRIN ENTERIC COATED 325 MG TABLET.DR. PO SCH ×2 (09:07→20:21)
[2021-09-13] MEDS: SENNOSIDES/DOCUSATE 8.6/50MG TABLET. PO SCH (09:07)
[2021-09-13] MEDS: MELOXICAM 7.5 MG TABLET PO SCH (09:07)
[2021-09-13] MEDS: FERROUS SULFATE 325 MG TABLET. PO SCH ×2 (09:07→17:36)
[2021-09-13] MEDS: MULTIVITAMIN with MINERAL TABLET. PO SCH (09:07)
[2021-09-13] MEDS: LISINOPRIL 20 MG TABLET PO SCH (09:08)
--- NOTE | 2021-09-13 09:53 | PDOC ---
PROGRESS NOTES Date of Service: DATE: 09/13/21 TIME: 09:51 Subjective Subjective feels nauseated Objective Objective Vital Signs Date Time Temp Pulse Resp B/P (MAP) Pulse Ox O2 Delivery O2 Flow Rate FiO2 09/13/21 09:08 89 148/63 09/13/21 08:15 Room Air 09/13/21 07:00 98.0 22 91 98.0 Intake and Output 09/13/21 07:00 Intake Total 480 ml Output Total 1 ml Balance 479 ml Intake Oral 480 ml Output Urine Total 1 ml # Voids 2 # Bowel Movements 1 Physical Exam Abdomen: Soft Heart: Normal S1, Normal S2 Extremities: No clubbing General: Alert HEENT: PERRLA Lungs: Clear to auscultation MUSCULOSKELETAL: No swelling Neck: No JVD Neuro: Normal speech Psych/Mental Status: Mental status NL Skin: No breakdown Assessment Assessment FINAL IMPRESSION: 1. Elective admission for total knee replacement, left. 2. Rheumatoid arthritis, on methotrexate. 3. Hypertension. PLAN:POD#2 doing well zofran for n/v labs ok dvt prevention on ASA. home tomorrow? At this time, the patient is admitted after surgery and pain control. Resume blood pressure medications and see how she improves. Comment Review of Relevant I have reviewed the following items shemar (where applicable) has been applied. Labs Laboratory Tests Test 09/13/21 07:06 Hemoglobin 9.5 g/dL (12.0-15.5) Hematocrit 29.8 % (36.0-47.0) Mean Corpuscular Hemoglobin Concent 32 g/dL (31-37) Medications Current Medications Bisacodyl (Dulcolax Supp) 10 mg 1X PRN PRN TN CONSTIPATION; Start 09/12/21 at 16:00; Stop 09/13/21 at 15:59 Ondansetron HCl (Zofran Odt) 4 mg PRN Q6HRS PRN PO Nausea/vomiting, 1st choice Last administered on 09/13/21at 02:10; Start 09/12/21 at 12:00 Ondansetron HCl (Zofran) 4 mg PRN Q6HRS PRN IVP Nausea/vomiting, 1st choice; Start 09/12/21 at 12:00 Prochlorperazine Edisylate (Compazine) 10 mg PRN Q6HRS PRN IV NAUSEA/VOMITING 2ND CHOICE Last administered on 09/13/21at 03:45; Start 09/13/21 at 03:30 Vitals/I & O Vital Sign - Last 24 Hours 09/12/21 09/12/21 09/12/21 09/12/21 11:00 15:00 17:52 18:45 Temp 98.2 97.8 98.2 97.8 Pulse 65 80 Resp 13 18 20 20 B/P (MAP) 119/48 (71) 162/75 (104) Pulse Ox 92 94 O2 Delivery Room Air Room Air Room Air Room Air 09/12/21 09/12/21 09/12/21 09/13/21 19:35 20:00 23:27 02:55 Temp 98.1 98.0 98.9 98.1 98.0 98.9 Pulse 61 86 109 Resp 18 18 22 B/P (MAP) 112/67 (82) 178/77 (110) 198/92 (127) Pulse Ox 95 94 94 O2 Delivery Room Air Room Air Room Air Room Air 09/13/21 09/13/21 09/13/21 09/13/21 07:00 08:15 09:07 09:08 Temp 98.0 98.0 Pulse 89 89 89 Resp 22 B/P (MAP) 148/63 (91) 148/63 148/63 Pulse Ox 91 O2 Delivery Room Air Room Air Intake and Output 09/12/21 09/12/21 09/13/21 15:00 23:00 07:00 Intake Total 480 ml Output Total 1 ml Balance 479 ml Justifications for Admission Other Justification JAYSON CHRISTENSEN MD Sep 13, 2021 09:53
[2021-09-13] MEDS: IV NORMAL SALINE 1000ML BAG 1,000 ML IV SCH (11:00)
[2021-09-13 15:00] VITALS: BP 168/76
--- NOTE | 2021-09-13 17:49 | PN ---
DATE: 09/13/2021 LOCATION: 420. She is postoperative day #2 from a left total knee arthroplasty. Her pain is minimal at this point. She still has an effusion in the knee, but no excessive drainage is noted. Range of motion 0-70 degrees today. She is able to get out of a chair and do transfers very safely. She is ambulating without any difficulties or problems. No signs or symptoms of infection and no signs or symptoms of DVT. We have talked with her today about discharge instructions for orthopedically as far as daily aspirin b.i.d. We have talked with her about ice, elevation, at least twice a day if not more for swelling, which may occur. She will continue with home health for physical therapy and occupational therapy. I will see her back for reevaluation in early September to check wound. She is to call immediately if there are any issues, problems or concerns. ARMAAN DR: Denise TID: [id number]
--- NOTE | 2021-09-13 18:28 | PATHOLOGY ---
[facility] Accession Number: [id number] . 01 Material submitted: . knee - LEFT KNEE BONE AND TISSUE. Modifiers: left . 01 Clinical history: . OSTEOARTHRITIS LEFT KNEE . 02 Diagnosis: Segments of bone and soft tissue, left total knee arthroplasty: - Advanced degenerative arthritis. (JPM:[facility]; 09/13/2021) P 09/13/2021 0822 Local . 02 Electronically signed: . Vadim Anglin MD, Pathologist NPI- [id number] . 01 Gross description: . The specimen is received in formalin, labeled "Shirlene Kenneth, left knee bone and tissue". Received are multiple segments of bone, including the tibial plateau, admixed with soft tissue measuring 9.5 x 7.7 x 3.1 cm in aggregate dimensions. The articular surfaces are smooth to granular in appearance with evidence of eburnation. The specimen is submitted representatively in cassette A1, following decalcification. ([facility]; 09/11/2021) QAC/QA 09/11/2021 1547 Local . 02 Pathologist provided ICD-10: M17.12 . 02 CPT . 513850, [id number] Specimen Comment: A courtesy copy of this report has been sent to [phone], [phone] Specimen Comment: [id number] Specimen Comment: Report sent to / DR CHRISTENSEN Performed at: 01 [facility] [address], [place] [id number] MD Eugenio Madera MD Phone: [phone] Performed at: 02 [facility] [address], [place] [id number] MD Vadim Anglin MD Phone: [phone]
[2021-09-13 19:00] VITALS: BP 163/76
[2021-09-13] MEDS: oxyCODONE IR 5 MG TABLET PO PRN (20:21)
[2021-09-13 23:10] VITALS: BP 134/71
[2021-09-14] MEDS: ACETAMINOPHEN 500 MG TABLET PO SCH ×3 (03:26→14:25)
[2021-09-14] MEDS: oxyCODONE IR 5 MG TABLET PO PRN ×3 (03:26→14:25)
[2021-09-14] MEDS: GABAPENTIN 100 MG CAPSULE. PO SCH ×2 (05:53→14:23)
[2021-09-14 07:00] VITALS: BP 120/75
[2021-09-14 08:04] LABS: HEMATOCRIT 27.1 % (36.0-47.0); HEMOGLOBIN 8.6 g/dL (12.0-15.5)
[2021-09-14] MEDS: MELOXICAM 7.5 MG TABLET PO SCH (09:01)
[2021-09-14] MEDS: SENNOSIDES/DOCUSATE 8.6/50MG TABLET. PO SCH (09:01)
[2021-09-14] MEDS: ASPIRIN ENTERIC COATED 325 MG TABLET.DR. PO SCH (09:02)
[2021-09-14] MEDS: MULTIVITAMIN with MINERAL TABLET. PO SCH (09:02)
[2021-09-14] MEDS: FERROUS SULFATE 325 MG TABLET. PO SCH (09:02)
[2021-09-14 09:06] VITALS: BP 148/71
[2021-09-14] MEDS: LISINOPRIL 20 MG TABLET PO SCH (09:06)
--- NOTE | 2021-09-14 09:33 | PDOC ---
PROGRESS NOTES Date of Service: DATE: 09/14/21 TIME: 09:32 Subjective Subjective doing well Objective Objective Vital Signs Date Time Temp Pulse Resp B/P (MAP) Pulse Ox O2 Delivery O2 Flow Rate FiO2 09/14/21 09:12 Room Air 09/14/21 09:06 80 148/71 09/14/21 07:00 98.4 18 90 98.4 Intake and Output 09/14/21 07:00 Intake Total 400 ml Balance 400 ml Intake Oral 400 ml Physical Exam Abdomen: Soft Heart: Normal S1, Normal S2 Extremities: No clubbing General: Alert HEENT: PERRLA Lungs: Clear to auscultation MUSCULOSKELETAL: No swelling Neck: No JVD Neuro: Normal speech Psych/Mental Status: Mental status NL Skin: No breakdown Assessment Assessment FINAL IMPRESSION: 1. Elective admission for total knee replacement, left. 2. Rheumatoid arthritis, on methotrexate. 3. Hypertension. PLAN:POD#3 doing well zofran for n/v labs noted dvt prevention on ASA po bid. home today At this time, the patient is admitted after surgery and pain control. Resume blood pressure medications and see how she improves. Comment Review of Relevant I have reviewed the following items shemar (where applicable) has been applied. Labs Laboratory Tests Test 09/14/21 07:30 Hemoglobin 8.6 g/dL (12.0-15.5) Hematocrit 27.1 % (36.0-47.0) Mean Corpuscular Hemoglobin Concent 32 g/dL (31-37) Vitals/I & O Vital Sign - Last 24 Hours 09/13/21 09/13/21 09/13/21 09/13/21 15:00 19:00 20:20 20:21 Temp 97.8 98.5 97.8 98.5 Pulse 88 89 Resp 22 14 18 B/P (MAP) 168/76 (106) 163/76 (105) Pulse Ox 95 94 94 O2 Delivery Room Air Room Air Room Air Room Air 09/13/21 09/13/21 09/14/21 09/14/21 20:51 23:10 03:26 03:56 Temp 98.2 98.2 Pulse 81 Resp 18 B/P (MAP) 134/71 (92) Pulse Ox 94 94 O2 Delivery Room Air Room Air Room Air Room Air 09/14/21 09/14/21 09/14/21 09/14/21 07:00 09:05 09:06 09:12 Temp 98.4 98.4 Pulse 76 80 80 Resp 18 B/P (MAP) 120/75 (90) 148/71 148/71 Pulse Ox 90 O2 Delivery Room Air Room Air Intake and Output 09/13/21 09/13/21 09/14/21 15:00 23:00 07:00 Intake Total 400 ml Balance 400 ml Justifications for Admission Other Justification JAYSON CHRISTENSEN MD Sep 14, 2021 09:33
[2021-09-14] MEDS ORDERED: OXYC5TAB4 PO (09:38)
--- NOTE | 2021-09-14 09:40 | SNU/HH DC ---
DISCHARGE WITH HOME HEALTH DISCHARGE INFORMATION: Discharge Date: Sep 14, 2021 Condition on Discharge: Stable CODE STATUS: Code Status: Full HOME HEALTH: Face to Face: I certify this patient is under my care and that I, or a nurse practitioner or travis stiles's statistical assistant working with me, had a face to face encounter that meets the physician face to face encounter requirements with this patient on []. Medical Complications: S/P Joint Replacement RN For Eval/Treatment: Yes Physical Therapy For: Evalulation/Treatment Occupational Therapy For: Evaluation/Treatment Pt Meets Homebound Status: Poor coordination w/ amb. POST DISCHARGE ORDERS: Activity Instructions for Disc: Avoid exertion Weight Bearing Status after Di: As tolerated Bathing Instructions: Shower-keep dressing dry, No Tub Bath until see Wound/Incision Care: Ice to area for comfort, Keep wound/cast CDI, Do not change dressing TREATMENT/EQUIPMENT ORDERS: Adaptive Equipment Issued: Four wheeled walker CERTIFICATION STATEMENT: Certification Statement: Certification Statement: Based on the above finding, I certify that this patient is confined to the home and needs intermittent nursing home care, physical therapy and/or speech therapy, or continues to need occupational therapy.~ This patient is under my care, and I have initiated the establishment of the plan of care.~ This patient will be followed by myself or a community physician who will periodically review the plan of care. Home Meds Active Scripts Oxycodone Hcl (OXYCODONE HCL IMMED.RELEASE ) 5 Mg Tablet, 5 MG PO PRN Q4HRS PRN for Pain score 4-6 for 20 Days, TAB Prov:JAYSON CHRISTENSEN MD 09/14/21 Reported Medications Aspirin (ASPIRIN EC) 325 Mg Tablet.dr, 1 TAB PO BID for blood thinner for 30 Days, #60 TAB 0 Refills 09/11/21 Ferrous Sulfate (SLOW RELEASE IRON) 160 Mg Tablet.er, 64 MG PO DAILY for supplement, TAB.SR 08/22/21 Ergocalciferol (Vitamin D2) (Vitamin D2) 10 Mcg Tablet, 10 MCG PO DAILY for vitamin, TAB 08/22/21 Tizanidine Hcl (ZANAFLEX) 4 Mg Tablet, 4 MG PO TID PRN for MUSCLE SPASMS, TAB 01/18/21 Lidocaine Hcl (LIDOCAINE HCL) 5 Ml Jel..ml., 5 ML MM, MISC 01/18/21 Hydrocodone Bit/Acetaminophen (HYDROCODONE-APAP 5-325 ) 1 Tab Tablet, 1 TAB PO PRN Q6HRS PRN for PAIN, TAB 0 Refills 11/26/19 Methotrexate Sodium (METHOTREXATE) 2.5 Mg Tablet, 6 TAB PO WEEKLY for arthritis, TAB 03/31/18 Amlodipine Besylate (AMLODIPINE BESYLATE) 10 Mg Tablet, 10 MG PO DAILY for blood pressure MDD 1 08/13/13 Lisinopril (LISINOPRIL) 40 Mg Tablet, 40 MG PO DAILY for blood pressure MDD 1 08/13/13 Folic Acid (FOLIC ACID) 1 Mg Tablet, 1 MG PO DAILY for supplement MDD 1 08/13/13 Discontinued Reported Medications Diclofenac Sodium (Voltaren Arthritis Pain) 20 Gm Gel..gram., 20 GM TP, EACH 01/18/21 Celecoxib (CELEBREX) 200 Mg Capsule, 200 MG PO DAILY for pain for 30 Days, #30 CAP 0 Refills 01/18/21 Aspirin (ASPIRIN) 81 Mg Tab.chew, 1 TAB PO DAILY for heart, #30 TAB 3 Refills 11/26/19 JAYSON CHRISTENSEN MD Sep 14, 2021 09:40
[2021-09-14] MEDS: IV NORMAL SALINE 1000ML BAG 1,000 ML IV SCH (11:00)
--- NOTE | 2021-09-14 14:42 | PN ---
DATE: 09/14/2021 The patient is seen postoperative day #3 for a total knee arthroplasty. She is doing very well with physical and occupational therapy. She has no signs or symptoms of infection. No excessive discharge or any abnormalities as far as the wound is concerned at all. No erythema. She is progressing well with physical therapy. Therefore, at this point, she can go ahead and be discharged home. I have talked with her about continuing with DVT prophylaxis. I discussed that at length with her. We have also discussed pain control, ice, elevation and continue with PT and OT until followup in approximately 2 weeks. She was instructed to call me if there are any issues, problems, or concerns whatsoever. ROB DR: Denise TID: [id number]
--- NOTE | 2021-09-14 16:20 | NUR ---
Discharge instructions given. Answered questions and concerns. Verbalized understanding. Pt discharged home with home health. Escorted out by w/c accompanied by son.
--- NOTE | 2021-09-15 21:27 | PDOC ---
Provider Note Date of Service: DATE: 09/15/21 TIME: 21:27 Provider Note Discharge summary dictated.#[id number]. Justifications for Admission Other Justification JAYSON CHRISTENSEN MD Sep 15, 2021 21:27
--- NOTE | 2021-09-15 21:41 | DS ---
DATE OF DISCHARGE: 09/14/2021 REASON FOR ADMISSION TO THE HOSPITAL: Elective admission for left knee replacement. CONSULTATIONS: Dr. Cabral. PROCEDURES DONE: Left total knee arthroplasty. COMPLICATIONS NOTED: None. HOSPITAL COURSE: The patient is a 76-year-old female with history of rheumatoid arthritis, severe DJD of the left knee. The patient was seen by orthopedic and had elective admission for total left knee replacement. The patient underwent procedure. She did well, was stayed in the hospital for 3 days and was discharged on third postoperative day. She was discharged on aspirin for DVT prophylaxis, pain control and home health with PT and OT. FINAL DIAGNOSES: 1. Elective admission for left knee replacement. 2. Rheumatoid arthritis. 3. Hypertension. DISPOSITION: Home. See [facility] for discharge medications. REJI ZHANG: Rosette TID: [id number]
== END 2021-09-14 16:20 | disposition home health service (06) | DRG 470 ==
LOC: SURG 08:13 → INTOOBSV 09:47 → 4 NORTH 09:47 → OBSVTOIN 09-13 12:02
PROVIDERS: ADMIT Orthopaedic Surgery; ATTEND Orthopaedic Surgery
PROC: 0SRD0J9 Replacement of Left Knee Joint with Synthetic Substitute, Cemented, Open Approach (ICD-10-PCS; principal; 2021-09-11 10:15)
DX: M17.12 Unilateral primary osteoarthritis, left knee (principal); M06.9 Rheumatoid arthritis, unspecified; I10 Essential (primary) hypertension; Z79.899 Other long term (current) drug therapy; K21.9 Gastro-esophageal reflux disease without esophagitis; K57.90 Diverticulosis of intestine, part unspecified, without perforation or abscess without bleeding; Z20.822 Contact with and (suspected) exposure to COVID-19
CPT/HCPCS: 36415; 73560; 85014; 85018; 86850; 86870; 86900; 86901; 88305; 88311; A4213; A4930; A6550; C1713; C1776; G0378; G0379; J0171; J0690; J0780; J1100; J1170; J1885; J2270; J2370; J2405; J2704; J2795; J3010; J3490; J7030; 97110-GP; 97116-GP; 97150-GP; 97530-GO; 97530-GP; 97535-GO